=== PATIENT | male | born 1975 | race Hispanic/Latino ===

== ENCOUNTER 2018-11-18 17:04 | Emergency (ER) | payer OTHER ==
[2018-11-18] MEDS ORDERED: NA CHLORIDE 0.9% 1,000 ML ONE ×2 (17:40→19:18)
[2018-11-18 17:56] LABS: Absolute Lymphocytes (CBC) 2.2 K/uL (0.7-4.9); Basophils % 0.6 % (0-1.3); Lymphocytes % 22.5 % (15.3-44.8); MPV 8.6 fL (7.6-11.3); RBC Red Blood Cell Count 5.12 M/uL (4.33-5.43)
--- NOTE | 2018-11-18 18:06 | RAD REPORT ---
EXAM DESCRIPTION: CT - Head Brain Wo Cont - 11/18/2018 5:59 pm CLINICAL HISTORY: blurry vision;Dizziness Headache, drowsiness COMPARISON: <Comparisons> TECHNIQUE: All CT scans are performed using dose optimization technique as appropriate and may inclu de automated exposure control or mA/KV adjustment according to patient size. FINDINGS: No intracranial hemorrhage, hydrocephalus or extra-axial fluid collection.No areas of brai n edema or evidence of midline shift. The paranasal sinuses and mastoids are clear. The calvarium is intact. IMPRESSION: No acute intracranial abnormality.
[2018-11-18 18:27] LABS: ALT/SGPT 55 U/L (12-78); AST/SGOT 22 U/L (15-37); Albumin 4.2 g/dL (3.4-5.0); Alkaline Phosphatase 70 U/L (45-117); BUN Blood Urea Nitrogen 15 mg/dL (7-18); Bicarbonate 25 mmol/L (21-32); Bilirubin Direct 0.1 mg/dL (0-0.2); Bilirubin Total 0.7 mg/dL (0.2-1.0); Glucose Level 101 mg/dL (74-106); Magnesium 2.2 mg/dL (1.8-2.4); NT PRO-BNP 9 pg/mL (<125); Potassium 3.9 mmol/L (3.5-5.1); Sodium Level 142 mmol/L (136-145); Troponin (Emerg Dept Use Only) < 0.02 ng/mL (0.0-0.045)
[2018-11-18] MEDS ORDERED: ASPIRIN 81 MG CHEWABLE TABLET ONE (19:16)
[2018-11-18] MEDS ORDERED: NITROGLYCERIN 0.4 MG/TAB SL ONE (19:17)
--- NOTE | 2018-11-18 22:14 | ER ---
Nurse's Notes [facility] Name: Christopher Shearer Age: 43 yrs Sex: Male : 1975 Arrival Date: 11/18/2018 Time: 17:06 Bed 23 Private MD: None, None Diagnosis: Chest pain, unspecified Presentation: 11/18 17:12 Presenting complaint: Patient states: i started having discomfort in my chest just a tw2 little bit ago when i got off work but earlier about 230 today my vision started getting blurry and i was just sitting there. Transition of care: patient was not received from another setting of care. Onset of symptoms was November 18, 2018. Risk Assessment: Do you want to hurt yourself or someone else? Patient reports no desire to harm self or others. Initial Sepsis Screen: Does the patient meet any 2 criteria? No. Patient's initial sepsis screen is negative. Does the patient have a suspected source of infection? No. Patient's initial sepsis screen is negative. Care prior to arrival: None. 17:12 Method Of Arrival: Ambulatory tw2 17:12 Acuity: PAVAN 3 tw2 Triage Assessment: 17:21 General: Appears in no apparent distress. Behavior is calm, cooperative, appropriate tw2 for age. Pain: Complains of pain in chest. Cardiovascular: Reports chest pain. 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 - Social history:: Smoking status: . - Ebola Screening: : Patient denies travel to an Ebola-affected area in the 21 days before illness onset. Screenin:01 Abuse screen: Denies threats or abuse. Denies injuries from another. Nutritional iw screening: No deficits noted. Tuberculosis screening: No symptoms or risk factors identified. Fall Risk IV access (20 points). Assessment: 17:40 General: Appears in no apparent distress. comfortable, Behavior is calm, cooperative. iw Pain: Complains of pain in chest Pain does not radiate. Pain currently is 0 out of 10 on a pain scale. Pain began Is episodic. Neuro: Level of Consciousness is awake, alert, obeys commands, Oriented to person, place, time, situation, Moves all extremities. Reports blurred vision dizziness. Cardiovascular: Patient's skin is warm and dry. Respiratory: Respiratory effort is even, unlabored, Respiratory pattern is regular. GI: No signs and/or symptoms were reported involving the gastrointestinal system. Derm: Skin is intact, is healthy with good turgor. Musculoskeletal: Range of motion: intact in all extremities. 18:48 Reassessment: Patient appears in no apparent distress at this time. Patient and/or iw family updated on plan of care and expected duration. Pain level reassessed. Patient is alert, oriented x 3, equal unlabored respirations, skin warm/dry/pink. Patient denies pain at this time. 20:37 Reassessment: Patient appears in no apparent distress at this time. Patient and/or mg2 family updated on plan of care and expected duration. Pain level reassessed. Patient is alert, oriented x 3, equal unlabored respirations, skin warm/dry/pink. Vital Signs: 17:13 BP 138 / 88; Pulse 83; Resp 17; Temp 98.2(TE); Pulse Ox 98% on R/A; Weight 91.63 kg tw2 (R); Height 5 ft. 11 in. (180.34 cm) (R); Pain 3/10; 17:52 BP 116 / 85 Supine; Pulse 66; iw 17:53 BP 130 / 89 Sitting; Pulse 69; iw 17:56 BP 125 / 94 Standing; Pulse 69; iw 19:29 BP 130 / 96; Pulse 74; Resp 18; Pulse Ox 97% on R/A; mg2 20:38 BP 114 / 82; Pulse 70; Resp 18; Pulse Ox 98% on R/A; mg2 21:43 BP 124 / 82; Pulse 64; Resp 18; Pulse Ox 98% on R/A; mg2 22:20 BP 124 / 81; Pulse 66; Resp 16; Pulse Ox 99% on R/A; rv 17:13 Body Mass Index 28.17 (91.63 kg, 180.34 cm) tw2 ED Course: 17:06 Patient arrived in ED. mr 17:07 None, None is Private Physician. mr 17:12 Arm band placed on. EKG completed in triage. Results shown to . tw2 17:13 Cathy Garcia, RN is Primary Nurse. iw 17:20 Wisam Strong PA is PHCP. cp 17:20 Callum Luis MD is Attending Physician. cp 17:20 Triage completed. tw2 17:26 EKG done, by aviation survival technician. reviewed by Callum Luis MD. sm3 17:45 Initial lab(s) drawn, by il, sent to lab. Inserted saline lock: 20 gauge in right iw antecubital area, using aseptic technique. Blood collected. 17:[address] [place] 18:00 CT Head Brain wo Cont In Process Unspecified. EDMS 19:28 Patient has correct armband on for positive identification. equipment monitor phototypesetting on. Pulse mg2 ox on. NIBP on. 19:29 No provider procedures requiring assistance completed. mg2 19:29 Patient maintains SpO2 saturation greater than 95% on room air. mg2 21:37 Troponin I Sent. mg2 22:13 Adrián Muir MD is Referral Physician. cp 22:21 IV discontinued, intact, bleeding controlled, No redness/swelling at site. Pressure rv dressing applied. Administered Medications: 17:50 Drug: NS 0.9% 1000 ml Route: IV; Rate: 1 bolus; Site: right antecubital; iw 19:23 Drug: NS 0.9% 1000 ml Route: IV; Rate: 1000 ml; Site: right antecubital; mg2 21:11 Follow up: Response: No adverse reaction; IV Status: Completed infusion; IV Intake: mg2 1000ml 19:23 Drug: Nitroglycerin 0.4 mg Route: Sublingual; mg2 20:38 Follow up: Response: No adverse reaction mg2 19:23 Drug: Aspirin Chewable Tablet 324 mg Route: PO; mg2 20:38 Follow up: Response: No adverse reaction mg2 Intake: 21:11 IV: 1000ml; Total: 1000ml. mg2 Outcome: 22:14 Discharge ordered by MD. cp 22:21 Discharged to home ambulatory, with family. rv 22:21 Condition: good 22:21 Discharge instructions given to patient, Instructed on discharge instructions, follow up and referral plans. Demonstrated understanding of instructions, follow-up care. 22:22 Patient left the ED. rv Signatures: [facility] Ananth Imelda mr Cathy Garcia, DAVID RN Wisam Strong PA PA cp Leila Yates RN RN tw2 Moreno Hedrick Michele, RN RN mg2 Mary Lou Yadav sm3 Ministerio Cruz, DAVID RN rv
--- NOTE | 2018-11-18 22:15 | EDPHYS ---
Physician Documentation [facility] Name: Christopher Shearer Age: 43 yrs Sex: Male : 1975 Arrival Date: 11/18/2018 Time: 17:06 Bed 23 Private MD: None, None ED Physician Callum Luis HPI: 11/18 17:40 This 43 yrs old Male presents to ER via Ambulatory with complaints of Chest cp Pain, Vision Problem. 17:40 The patient or guardian reports chest pain that is located primarily in the anterior cp chest wall. Onset: just prior to arrival. The chest pain is described as a pressure. Duration: The patient or guardian reports a single episode, that is still ongoing, but improving. 17:40 The patient presents with lightheadedness, vision went dark. cp 17:40 Onset: The symptoms/episode began/occurred today, at 14:30, while at work and sitting cp outside on scaffold. Associated signs and symptoms: Pertinent negatives: abdominal pain, diaphoresis, focal weakness, numbness, syncope, vomiting. Severity of symptoms: in the emergency department the symptoms have resolved report single episode that lasted for seconds. Patient's baseline: Neuro: alert and fully oriented, Motor: no deficits, Ambulation: walks without assistance, Speech: normal. 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 - Social history:: Smoking status: . - Ebola Screening: : Patient denies travel to an Ebola-affected area in the 21 days before illness onset. ROS: 17:45 Constitutional: Negative for chills, fever, poor PO intake. cp 17:45 Eyes: Positive for blurry vision, Negative for pain, redness, vision loss. cp 17:45 ENT: Negative for drainage from ear(s), ear pain, sore throat, difficulty swallowing, difficulty handling secretions. 17:45 Cardiovascular: Positive for chest pain, Negative for edema, palpitations. 17:45 Respiratory: Negative for cough, shortness of breath, wheezing. 17:45 Abdomen/GI: Negative for abdominal pain, nausea, vomiting, and diarrhea. 17:45 Neuro: Positive for dizziness, Negative for altered mental status, syncope, weakness. 17:45 All other systems are negative. Exam: 17:20 ECG was reviewed by the Attending Physician. cp 17:50 Constitutional: The patient appears in no acute distress, alert, awake, comfortable, cp non-diaphoretic, non-toxic, well developed, well nourished. 17:50 Head/Face: Normocephalic, atraumatic. Eyes: Pupils equal round and reactive to light, cp extra-ocular motions intact. Lids and lashes normal. Conjunctiva and sclera are non-icteric and not injected. Cornea within normal limits. Periorbital areas with no swelling, redness, or edema. ENT: Nares patent. No nasal discharge, no septal abnormalities noted. Tympanic membranes are normal and external auditory canals are clear. Oropharynx with no redness, swelling, or masses, exudates, or evidence of obstruction, uvula midline. Mucous membranes moist. Chest/axilla: Normal chest wall appearance and motion. Nontender with no deformity. No lesions are appreciated. 17:50 Cardiovascular: Rate: normal, Rhythm: regular, Edema: is not appreciated, JVD: is not appreciated. 17:50 Respiratory: the patient does not display signs of respiratory distress, Respirations: normal, no use of accessory muscles, no retractions, no splinting, no tachypnea, labored breathing, is not present, Breath sounds: are clear throughout, no decreased breath sounds, no stridor, no wheezing. 17:50 Abdomen/GI: Inspection: abdomen appears normal, Bowel sounds: active, all quadrants, Palpation: abdomen is soft and non-tender, in all quadrants. 17:50 Back: pain, is absent, ROM is normal. 17:50 Skin: no rash present. 17:50 Neuro: Orientation: to person, place \T\ time. Mentation: is normal, Cerebellar function: is grossly normal, Motor: moves all fours, strength is normal, Sensation: is normal. 21:35 ECG was reviewed by the Attending Physician. cp Vital Signs: 17:13 BP 138 / 88; Pulse 83; Resp 17; Temp 98.2(TE); Pulse Ox 98% on R/A; Weight 91.63 kg tw2 (R); Height 5 ft. 11 in. (180.34 cm) (R); Pain 3/10; 17:52 BP 116 / 85 Supine; Pulse 66; iw 17:53 BP 130 / 89 Sitting; Pulse 69; iw 17:56 BP 125 / 94 Standing; Pulse 69; iw 19:29 BP 130 / 96; Pulse 74; Resp 18; Pulse Ox 97% on R/A; mg2 20:38 BP 114 / 82; Pulse 70; Resp 18; Pulse Ox 98% on R/A; mg2 21:43 BP 124 / 82; Pulse 64; Resp 18; Pulse Ox 98% on R/A; mg2 22:20 BP 124 / 81; Pulse 66; Resp 16; Pulse Ox 99% on R/A; rv 17:13 Body Mass Index 28.17 (91.63 kg, 180.34 cm) tw2 MDM: 17:20 Patient medically screened. cp 22:13 The patient was given aspirin in the Emergency Department. cp 22:13 Data reviewed: vital signs, nurses notes, lab test result(s), EKG, radiologic studies, cp CT scan, plain films, and as a result, I will discharge patient. Test interpretation: by ED physician or midlevel provider: ECG. Counseling: I had a detailed discussion with the patient and/or guardian regarding: the historical points, exam findings, and any diagnostic results supporting the discharge/admit diagnosis, lab results, radiology results, the need for outpatient follow up, a pictures editor, to return to the emergency department if symptoms worsen or persist or if there are any questions or concerns that arise at home. Special discussion: Based on the patient's history, exam, and Dx evaluation, there is no indication for emergent intervention or inpatient Tx. It is understood by the patient/guardian that if the Sx's persist or worsen they need to return immediately for re-evaluation. ED course: VSS. Initial and repeat EKGs and troponin negative. Will discharge to home for continued monitoring. 11/18 17:35 Order name: Basic Metabolic Panel; Complete Time: 18:28 cp 11/18 18:28 Interpretation: Normal except: CL 109; CRE 1.32; GFR 60. cp 11/18 17:35 Order name: CBC with Diff; Complete Time: 18:28 cp 11/18 17:35 Order name: LFT's; Complete Time: 18:41 cp /04 17:35 Order name: Magnesium; Complete Time: 18:41 cp /04 17:35 Order name: NT PRO-BNP; Complete Time: 18:41 cp /04 17:35 Order name: PT-INR; Complete Time: 18:28 cp /04 17:35 Order name: CT Head Brain wo Cont; Complete Time: 18:28 cp /04 18:28 Interpretation: Report reviewed. cp / 17:35 Order name: Troponin (emerg Dept Use Only); Complete Time: 18:41 cp /04 18:40 Interpretation: Reviewed. cp / 17:35 Order name: EKG; Complete Time: 17:37 cp / 21:22 Order name: Troponin I cp / 17:35 Order name: Orthostatics; Complete Time: 17:58 cp /04 17:35 Order name: Cardiac monitoring; Complete Time: 17:58 cp 11/18 17:35 Order name: EKG - Nurse/Tech; Complete Time: 17:58 cp 11/18 17:35 Order name: IV Saline Lock; Complete Time: 17:58 cp 11/18 17:35 Order name: Labs collected and sent; Complete Time: 17:58 cp 11/18 17:35 Order name: O2 Per Protocol; Complete Time: 17:58 cp 11/18 17:35 Order name: O2 Sat Monitoring; Complete Time: 17:58 cp 04 21:22 Order name: EKG; Complete Time: 21:22 cp 11/18 21:22 Order name: EKG - Nurse/Tech; Complete Time: 21:27 cp EC:20 Rate is 79 beats/min. Rhythm is regular. OH interval is normal. QRS interval is normal. cp QT interval is normal. T waves are Inverted in lead III. Interpreted by me. Reviewed by me. 21:35 Rate is 60 beats/min. Rhythm is regular. OH interval is normal. QRS interval is normal. cp QT interval is normal. T waves are Inverted in lead III. Interpreted by me. Reviewed by me. Administered Medications: 17:50 Drug: NS 0.9% 1000 ml Route: IV; Rate: 1 bolus; Site: right antecubital; iw 19:23 Drug: NS 0.9% 1000 ml Route: IV; Rate: 1000 ml; Site: right antecubital; mg2 21:11 Follow up: Response: No adverse reaction; IV Status: Completed infusion; IV Intake: mg2 1000ml 19:23 Drug: Nitroglycerin 0.4 mg Route: Sublingual; mg2 20:38 Follow up: Response: No adverse reaction mg2 19:23 Drug: Aspirin Chewable Tablet 324 mg Route: PO; mg2 20:38 Follow up: Response: No adverse reaction mg2 Disposition: 22:30 Chart complete. cp 11/19 07:00 Co-signature as Attending Physician, Callum Luis MD. rn Disposition: 11/18/18 22:14 Discharged to Home. Impression: Chest pain, unspecified. - Condition is Stable. - Discharge Instructions: Nonspecific Chest Pain, Exercise Stress Electrocardiogram, Aspirin and Your Heart. - Medication Reconciliation Form, Thank You Letter, Antibiotic Education, Prescription Opioid Use form. - Follow up: Adrián Muir MD; When: 1 - 2 days; Reason: chest pain. - Problem is new. - Symptoms have improved. Signatures: Dispatcher [employer] Cathy Sanon, RN RN Callum Luis MD MD rn Wisam Strong PA PA cp Leila Yates RN RN tw2 Williams Lowe RN RN mg2 Ministerio Cruz, RN RN rv Corrections: (The following items were deleted from the chart) 11/18 22:22 22:14 11/18/2018 22:14 Discharged to Home. Impression: Chest pain, unspecified. rv Condition is Stable. Forms are Medication Reconciliation Form, Thank You Letter, Antibiotic Education, Prescription Opioid Use. Follow up: Adrián Muir; When: 1 - 2 days; Reason: chest pain. Problem is new. Symptoms have improved. cp
--- NOTE | 2018-11-19 07:33 | EKG ---
Test Date: 2018-11-18 Test Time: 21:29:27 Speeder Machine Operator: RV MEASUREMENT RESULTS: Intervals: Rate: 60 MA: 152 QRSD: 92 QT: 390 QTc: 390 [place]: P: 10 MA: 152 QRS: 48 T: 5 INTERPRETIVE STATEMENTS: Normal sinus rhythm Normal ECG Compared to ECG 11/18/2018 17:13:35 No significant changes Electronically Signed On 11-19-18 07:32:45 CDT by Adrián Muir
--- NOTE | 2018-11-19 07:34 | EKG ---
Test Date: 2018-11-18 Test Time: 17:13:35 Air Export Logistics Manager: MASON MEASUREMENT RESULTS: Intervals: Rate: 79 RI: 134 QRSD: 84 QT: 344 QTc: 394 [place]: P: 54 RI: 134 QRS: 53 T: 15 INTERPRETIVE STATEMENTS: Normal sinus rhythm Normal ECG Compared to ECG 02/25/2016 00:09:09 No significant changes Electronically Signed On 11-19-18 07:33:00 CDT by Adrián Muir
== END 2018-11-18 22:22 | disposition home or self-care (01) ==
LOC: ER 17:04
DX: R07.9 Chest pain, unspecified (principal); I10 Essential (primary) hypertension; F41.9 Anxiety disorder, unspecified
CPT/HCPCS: 96361; 93005 ×2; 85025; 80048; 36415; 83735; 85610; 80076; 84484 ×2; 83880; 70450; 96360; 99285; J7030 ×2

== ENCOUNTER 2020-05-28 22:46 | Emergency (ER) | payer OTHER, SELFPAY ==
[2020-05-28 23:24] LABS: Absolute Lymphocytes (CBC) 1.6 K/uL (0.7-4.9); Basophils % 0.6 % (0-1.3); MPV 8.7 fL (7.6-11.3); RBC Red Blood Cell Count 5.75 M/uL (4.33-5.43)
[2020-05-28 23:28] LABS: Protime INR 0.92
[2020-05-28 23:36] LABS: ALT/SGPT 30 U/L (12-78); AST/SGOT 17 U/L (15-37); Albumin 4.1 g/dL (3.4-5.0); Alkaline Phosphatase 104 U/L (45-117); BUN Blood Urea Nitrogen 14 mg/dL (7-18); Bicarbonate 28 mmol/L (21-32); Bilirubin Direct < 0.1 mg/dL (0-0.2); Bilirubin Total 0.4 mg/dL (0.2-1.0); Glucose Level 90 mg/dL (74-106); Magnesium 2.6 mg/dL (1.8-2.4); NT PRO-BNP 23 pg/mL (<125); Potassium 3.6 mmol/L (3.5-5.1); Protein, Total 8.1 g/dL (6.4-8.2); Sodium Level 142 mmol/L (136-145); Troponin (Emerg Dept Use Only) < 0.02 ng/mL (0.0-0.045)
--- NOTE | 2020-05-29 00:58 | ER ---
Nurse's Notes [facility] Name: Christopher Shearer Age: 44 yrs Sex: Male : 1975 Arrival Date: 05/28/2020 Time: 22:50 Bed 8 Private MD: Diagnosis: Chest wall pain Presentation: 05/28 23:00 Chief complaint: Patient states: Pt reports he was at work pulling on a pipe he felt ea the right side of his chest pulling and he felt dizzy, reports right side pain that radiates to the back. Coronavirus screen: At this time, the client does not indicate any symptoms associated with coronavirus-19. Ebola Screen: No symptoms or risks identified at this time. Initial Sepsis Screen: Does the patient meet any 2 criteria? No. Patient's initial sepsis screen is negative. Does the patient have a suspected source of infection? No. Patient's initial sepsis screen is negative. Risk Assessment: Do you want to hurt yourself or someone else? Patient reports no desire to harm self or others. Onset of symptoms was May 28, 2020. 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 - Social history:: Smoking status: unknown. Screenin:03 Abuse screen: Denies threats or abuse. Nutritional screening: No deficits noted. ea Tuberculosis screening: No symptoms or risk factors identified. Fall Risk None identified. Assessment: 23:03 General: Appears comfortable, Behavior is calm, cooperative. Pain: Complains of pain in rv chest Pain does not radiate. Pain began suddenly. Neuro: Level of Consciousness is awake, alert, obeys commands, Oriented to person, place, time, situation. Cardiovascular: Rhythm is sinus rhythm. Respiratory: Airway is patent Respiratory effort is even, unlabored. Derm: Skin is intact. Vital Signs: 23:00 BP 145 / 94; Pulse 76; Resp 18; Temp 97.8; Pulse Ox 97% on R/A; Weight 83.91 kg; Height ea 5 ft. 11 in. (180.34 cm); Pain 8/10; 05/29 00:12 BP 123 / 82; Pulse 76; Resp 19; Pulse Ox 94% on R/A; rv 05/28 23:00 Body Mass Index 25.80 (83.91 kg, 180.34 cm) ea ED Course: 05/28 22:50 Patient arrived in ED. am4 22:52 Mauricio Houston MD is Attending Physician. tw4 22:55 Ministerio Cruz, RN is Primary Nurse. rv 23:03 Triage completed. ea 23:03 No provider procedures requiring assistance completed. Patient maintains SpO2 ea saturation greater than 95% on room air. 23:03 Patient has correct armband on for positive identification. Bed in low position. Call ea light in reach. Side rails up X 1. phototypesetting equipment monitor on. Pulse ox on. NIBP on. 23:03 Arm band placed on right wrist. Patient placed in an exam room, on a stretcher, on ea pulse oximetry. 23:04 Initial lab(s) drawn, by me, sent to lab. EKG done, by ED staff, reviewed by Mauricio Houston MD. Inserted saline lock: 20 gauge in right forearm, using aseptic technique. Blood collected. 23:57 XRAY Chest (1 view) In Process Unspecified. EDIA 05/29 01:03 IV discontinued, intact, bleeding controlled, No redness/swelling at site. Pressure rv dressing applied. Administered Medications: 00:11 Drug: TORadol 30 mg Route: IVP; Site: right forearm; rv 01:03 Follow up: Response: No adverse reaction; Pain is decreased rv Outcome: 00:57 Discharge ordered by . tw4 01:03 Discharged to home ambulatory. rv 01:03 Condition: good 01:03 Discharge instructions given to patient, Instructed on discharge instructions, follow up and referral plans. medication usage, Demonstrated understanding of instructions, follow-up care, medications, Prescriptions given X 3. 01:03 Patient left the ED. rv Signatures: Dispatcher [employer] EDIA Thania Dalal RN RN ea Wadley, Terrence, MD MD tw4 Ministerio Cruz RN RN rv Martinez, Ashley am4
--- NOTE | 2020-05-29 00:58 | EDPHYS ---
Physician Documentation [facility] Name: Christopher Shearer Age: 44 yrs Sex: Male : 1975 Arrival Date: 05/28/2020 Time: 22:50 Bed 8 Private MD: ED Physician Mauricio Houston HPI: 05/28 23:49 This 44 yrs old Male presents to ER via Ambulatory with complaints of Chest tw4 Pain, Back Pain. 23:49 The patient or guardian reports chest pain that is located primarily in the anterior tw4 chest wall. The patient or guardian reports chest pain that is located primarily in the anterior chest wall, right. Onset: today. The pain does not radiate. Associated signs and symptoms: The patient has no apparent associated signs or symptoms. The chest pain is described as a pressure. Duration: The patient or guardian reports a single episode. Modifying factors: The symptoms are alleviated by remaining still, rest, the symptoms are aggravated by breathing, cough, deep breath, movement, palpation of area. The patient has not experienced similar symptoms in the past. 23:49 Pt states that he was moving a heavy pipe two days ago and had a sharp pain in his tw4 chest. 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 - Social history:: Smoking status: unknown. ROS: 23:49 Constitutional: Negative for fever, chills, and weight loss, Eyes: Negative for injury, tw4 pain, redness, and discharge. 23:49 Respiratory: Negative for shortness of breath, cough, wheezing, and pleuritic chest pain, Abdomen/GI: Negative for abdominal pain, nausea, vomiting, diarrhea, and constipation, Back: Negative for injury and pain, MS/Extremity: Negative for injury and deformity, Skin: Negative for injury, rash, and discoloration, Neuro: Negative for headache, weakness, numbness, tingling, and seizure. 23:49 Cardiovascular: Positive for chest pain, Negative for edema, orthopnea, palpitations, paroxysmal nocturnal dyspnea. Exam: 23:49 Constitutional: This is a well developed, well nourished patient who is awake, alert, tw4 and in no acute distress. Head/Face: Normocephalic, atraumatic. 23:49 Cardiovascular: Regular rate and rhythm with a normal S1 and S2. No gallops, murmurs, or rubs. Normal PMI, no JVD. No pulse deficits. Respiratory: Lungs have equal breath sounds bilaterally, clear to auscultation and percussion. No rales, rhonchi or wheezes noted. No increased work of breathing, no retractions or nasal flaring. Abdomen/GI: Soft, non-tender, with normal bowel sounds. No distension or tympany. No guarding or rebound. No evidence of tenderness throughout. Back: No spinal tenderness. No costovertebral tenderness. Full range of motion. MS/ Extremity: Pulses equal, no cyanosis. Neurovascular intact. Full, normal range of motion. Neuro: Awake and alert, GCS 15, oriented to person, place, time, and situation. Cranial nerves II-XII grossly intact. Motor strength 5/5 in all extremities. Sensory grossly intact. Cerebellar exam normal. Normal gait. 23:49 Chest/axilla: Inspection: normal, Palpation: tenderness, that totally reproduces the patient's complaints. Vital Signs: 23:00 BP 145 / 94; Pulse 76; Resp 18; Temp 97.8; Pulse Ox 97% on R/A; Weight 83.91 kg; Height ea 5 ft. 11 in. (180.34 cm); Pain 8/10; 05/29 00:12 BP 123 / 82; Pulse 76; Resp 19; Pulse Ox 94% on R/A; rv 05/28 23:00 Body Mass Index 25.80 (83.91 kg, 180.34 cm) ea MDM: 05/28 23:49 HEART Score: History: Slightly Suspicious (0), ECG: Normal (0), Age: < or = 45 years tw4 (0), Risk Factors: No Risk Factors Known (0), Troponin: < or = 1 x Normal Limit (0), Total Score = 0. Data reviewed: vital signs, nurses notes. Data interpreted: Pulse oximetry: Interpretation: normal. Counseling: I had a detailed discussion with the patient and/or guardian regarding: the historical points, exam findings, and any diagnostic results supporting the discharge/admit diagnosis. Special discussion: I discussed with the patient/guardian in detail that at this point there is no indication for admission to the hospital. It is understood, however, that if the symptoms persist or worsen the patient needs to return immediately for re-evaluation. 05/29 00:57 Patient medically screened. 05/28 22:53 Order name: Basic Metabolic Panel; Complete Time: 23:40 05/28 23:40 Interpretation: Normal except: CL 109; GFR 75. 05/28 22:53 Order name: CBC with Diff; Complete Time: 23:40 05/28 23:40 Interpretation: Normal except: RBC 5.75; HCT 50.0; MN% 13.5; LYM% 15.0. 05/28 22:53 Order name: LFT's; Complete Time: 23:40 05/28 23:40 Interpretation: Normal except: A/G 1.0; GLOB 4.0. 05/28 22:53 Order name: Magnesium; Complete Time: 23:40 05/28 23:40 Interpretation: Normal except: MG 2.6. 05/28 22:53 Order name: NT PRO-BNP; Complete Time: 23:40 05/28 23:40 Interpretation: Within normal limits: NT PRO-BNP 23. 05/28 22:53 Order name: PT-INR; Complete Time: 23:40 05/28 23:40 Interpretation: Within normal limits: PT 10.6. 05/28 22:53 Order name: Troponin (emerg Dept Use Only); Complete Time: 23:40 05/28 23:40 Interpretation: Within normal limits: TROPED < 0.02. 05/28 22:53 Order name: XRAY Chest (1 view) 05/28 22:53 Order name: EKG; Complete Time: 22:54 05/28 22:53 Order name: Cardiac monitoring; Complete Time: 23:04 05/28 22:53 Order name: EKG - Nurse/Tech; Complete Time: 23:04 05/28 22:53 Order name: IV Saline Lock; Complete Time: 23:04 05/28 22:53 Order name: Labs collected and sent; Complete Time: 23:04 05/28 22:53 Order name: O2 Per Protocol; Complete Time: : tw4 05/28 22:53 Order name: O2 Sat Monitoring; Complete Time: : tw4 EC:30 Rate is 83 beats/min. Rhythm is regular. QRS [place] is Normal. ID interval is normal. QRS tw4 interval is normal. QT interval is normal. No Q waves. T waves are Normal. No ST changes noted. Clinical impression: Normal ECG. Interpreted by me. Reviewed by me. Administered Medications: 00:11 Drug: TORadol 30 mg Route: IVP; Site: right forearm; rv 01:03 Follow up: Response: No adverse reaction; Pain is decreased rv Disposition: 05/29/20 00:57 Discharged to Home. Impression: Chest wall pain. - Condition is Stable. - Discharge Instructions: Chest Wall Pain, Costochondritis. - Prescriptions for Lidoderm 5 % Topical adhesive patch,medicated - apply 1 patch by TRANSDERMAL route once daily; 1 box. Voltaren 1 % Topical gel - apply 2 gram by TOPICAL route 4 times per day; 1 Container. Ibuprofen 800 mg Oral Tablet - take 1 tablet by ORAL route every 8 hours As needed take with food; 30 tablet. - Medication Reconciliation Form, Thank You Letter, Antibiotic Education, Prescription Opioid Use form. - Follow up: Private Physician; When: Upon discharge from the Emergency Department; Reason: Recheck today's complaints, Continuance of care, Re-evaluation by your physician. - Problem is new. - Symptoms have improved. Signatures: Dispatcher [employer] EDMS Thania Dalal RN RN ea Wadley, Terrence, MD MD tw4 Ministerio Cruz RN RN rv Corrections: (The following items were deleted from the chart) 01:03 00:57 05/29/2020 00:57 Discharged to Home. Impression: Chest wall pain. Condition is rv Stable. Forms are Medication Reconciliation Form, Thank You Letter, Antibiotic Education, Prescription Opioid Use. Follow up: Private Physician; When: Upon discharge from the Emergency Department; Reason: Recheck today's complaints, Continuance of care, Re-evaluation by your physician. Problem is new. Symptoms have improved. tw4
--- NOTE | 2020-05-29 09:01 | RAD REPORT ---
EXAM DESCRIPTION: RAD - Chest Single View - 05/28/2020 11:57 pm CLINICAL HISTORY: CHEST PAIN COMPARISON: February 2016 TECHNIQUE: AP portable chest image was obtained 05/28/2020 11:57 pm . FINDINGS: No focal lung parenchymal process. Interstitial pattern matches comparison. Heart and vasc ulature are normal. No measurable pleural effusion and no pneumothorax. No acute bony abnormality see n. No acute aortic findings suspected. IMPRESSION: No acute cardiopulmonary process. No significant change from comparison.
[2020-05-29 19:01] VITALS: TEMP 97.8
[2020-05-29 19:02] VITALS: BP 123/82; O2SAT 94
== END 2020-05-29 01:03 | disposition home or self-care (01) ==
LOC: ER 22:46
DX: R07.89 Other chest pain (principal); I10 Essential (primary) hypertension; F41.9 Anxiety disorder, unspecified
CPT/HCPCS: 36415; 71045; 80048; 80076; 83735; 83880; 84484; 85025; 85610; 93005; 96374; 99285

== ENCOUNTER 2020-10-08 13:35 | Emergency (ER) | payer SELFPAY ==
[2020-10-08 14:45] LABS: Basophils % 0.8 % (0-1.3); Hematocrit 46.9 % (39.6-49.0); Lymphocytes % 19.8 % (15.3-44.8); MPV 7.8 fL (7.6-11.3); Protime INR 0.95; RBC Red Blood Cell Count 5.48 M/uL (4.33-5.43)
[2020-10-08 14:59] LABS: ALT/SGPT 42 U/L (12-78); AST/SGOT 18 U/L (15-37); Albumin 4.2 g/dL (3.4-5.0); Alkaline Phosphatase 105 U/L (45-117); BUN Blood Urea Nitrogen 12 mg/dL (7-18); Bicarbonate 25 mmol/L (21-32); Bilirubin Direct 0.1 mg/dL (0-0.2); Bilirubin Total 0.7 mg/dL (0.2-1.0); Glucose Level 102 mg/dL (74-106); NT PRO-BNP 16 pg/mL (<125); Potassium 3.8 mmol/L (3.5-5.1); Protein, Total 8.1 g/dL (6.4-8.2); Sodium Level 138 mmol/L (136-145); Troponin (Emerg Dept Use Only) < 0.02 ng/mL (0.0-0.045)
--- NOTE | 2020-10-08 15:12 | RAD REPORT ---
EXAM DESCRIPTION: RAD - Chest Single View - 10/08/2020 2:35 pm CLINICAL HISTORY: CHEST PAIN COMPARISON: Chest Single View dated 05/28/2020; Chest Pa And Lat (2 Views) dated 02/25/2016; Chest Si ngle View dated 07/06/2015; Chest Single View dated 07/03/2015 FINDINGS: No evidence of edema or pneumonia. The heart size is within normal limits.No acute osseous abnormality. No significant pleural effusions or pneumothorax. IMPRESSION: No acute cardiopulmonary disease.
[2020-10-08] MEDS ORDERED: KETOROLAC 30 MG/ML INJ ONE (16:55)
--- NOTE | 2020-10-10 16:46 | ER ---
Nurse's Notes [facility] Name: Christopher Shearer Age: 45 yrs Sex: Male : 1975 Arrival Date: 10/08/2020 Time: 13:37 Bed 7 Private MD: Diagnosis: Chest pain, unspecified Presentation: 10/08 14:05 Chief complaint: Patient states: Intermittent chest discomfort that began a few days ss ago. PT reports today he feel fatigued, hands are clammy and now has a headache. Pt states, "I've been under a lot of stress lately.". Coronavirus screen: Client denies travel out of the [place] in the last 14 days. Ebola Screen: Patient denies exposure to infectious person. Patient denies travel to an Ebola-affected area in the 21 days before illness onset. Initial Sepsis Screen: Does the patient meet any 2 criteria? No. Patient's initial sepsis screen is negative. Does the patient have a suspected source of infection? No. Patient's initial sepsis screen is negative. Risk Assessment: Do you want to hurt yourself or someone else? Patient reports no desire to harm self or others. Onset of symptoms was November 05, 2020. 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 - Social history:: Smoking status: Patient denies any tobacco usage or history of. Screenin:59 Abuse screen: Denies threats or abuse. Denies injuries from another. Nutritional jl7 screening: No deficits noted. Tuberculosis screening: No symptoms or risk factors identified. Fall Risk IV access (20 points). Total Ross Fall Scale indicates No Risk (0-24 pts). Assessment: 15:03 General: Appears in no apparent distress. Behavior is calm, cooperative, appropriate kg for age, anxious, quiet. Pain: Denies pain. Pain: Denies pain. Neuro: No deficits noted. Cardiovascular: No deficits noted. Reports shortness of breath, numbness to hands Heart tones S1 S2. Respiratory: Reports cough that is productive, Difficulty getting sputum up Airway is patent Trachea midline Respiratory effort is even, unlabored, relaxed, Respiratory pattern is regular, Sputum is thick, white Breath sounds are clear bilaterally. GI: No deficits noted. : No deficits noted. 15:05 Pain: Pain began 4 hours ago. kg 16:00 Reassessment: Patient appears in no apparent distress at this time. No changes from jl7 previously documented assessment. Patient and/or family updated on plan of care and expected duration. Pain level reassessed. Patient is alert, oriented x 3, equal unlabored respirations, skin warm/dry/pink. 17:00 Reassessment: Patient appears in no apparent distress at this time. Patient and/or jl7 family updated on plan of care and expected duration. Pain level reassessed. Patient is alert, oriented x 3, equal unlabored respirations, skin warm/dry/pink. Patient states symptoms have improved. Vital Signs: 14:05 BP 141 / 99; Pulse 76; Resp 16; Temp 97.4(TE); Pulse Ox 99% on R/A; Weight 83.91 kg; ss Height 5 ft. 11 in. (180.34 cm); Pain 0/10; 14:59 BP 125 / 87; Pulse 72; Resp 15; Pulse Ox 99% ; jl7 16:00 BP 122 / 90; Pulse 73; Resp 15; Pulse Ox 97% ; jl7 17:00 BP 131 / 92; Pulse 73; Resp 15; Pulse Ox 99% ; jl7 14:05 Body Mass Index 25.80 (83.91 kg, 180.34 cm) ED Course: 13:37 Patient arrived in ED. ds1 14:07 Triage completed. ss 14:07 Arm band placed on right wrist. ss 14:20 Julissa Kohler FNP-C is PHCP. kb 14:20 Elton Hernández MD is Attending Physician. kb 14:30 Initial lab(s) drawn, by me, sent to lab. Inserted saline lock: 20 gauge in right dh3 forearm, using aseptic technique. Blood collected. 14:34 XRAY Chest (1 view) In Process Unspecified. EDMS 14:59 Patient has correct armband on for positive identification. Placed in gown. Bed in low jl7 position. Call light in reach. Side rails up X 1. surveillance monitor on. Pulse ox on. NIBP on. 15:03 Meredith Au, RN is Primary Nurse. kg 15:05 Patient maintains SpO2 saturation greater than 95% on room air. kg 16:45 EKG done, by ED staff, reviewed by Julissa FARLEY. 3 16:59 Troponin (emerg Dept Use Only) Sent. 3 17:25 No provider procedures requiring assistance completed. IV discontinued, intact, jl7 bleeding controlled, No redness/swelling at site. Pressure dressing applied. Administered Medications: 16:35 Drug: Ketorolac 30 mg Route: IVP; Site: right forearm; jl7 17:00 Follow up: Response: No adverse reaction; Pain is decreased jl7 Outcome: 17:16 Discharge ordered by . kb 17:25 Discharged to home ambulatory. 7 17:25 Condition: stable 17:25 Discharge instructions given to patient, Instructed on discharge instructions, follow up and referral plans. Demonstrated understanding of instructions, follow-up care. 17:26 Patient left the ED. 7 Signatures: Dispatcher [employer] EDMS Julissa Kohler FNP-C FNP-Cassidy Bocanegra ds1 Steffi Pendleton, RN RN Selina Masters RN RN 7 Christie Hernández 3 Meredith Au, RN RN kg
--- NOTE | 2020-10-10 16:47 | EDPHYS ---
Physician Documentation [facility] Name: Christopher Shearer Age: 45 yrs Sex: Male : 1975 Arrival Date: 10/08/2020 Time: 13:37 Bed 7 Private MD: ED Physician Elton Hernández HPI: 10/08 16:02 This 45 yrs old Male presents to ER via Ambulatory with complaints of Chest kb Pain - Stress. 16:02 The patient or guardian reports chest pain that is located primarily in the anterior kb chest wall. Onset: today. Onset: 3 hours precinct captain. The pain does not radiate. Associated signs and symptoms: Pertinent positives: hands tingling and sweatty. The chest pain is described as aching. Duration: The patient or guardian reports a single episode. Modifying factors: The symptoms are alleviated by nothing. the symptoms are aggravated by nothing. Severity of pain: At its worst the pain was moderate in the emergency department the pain is unchanged. The patient has experienced similar episodes in the past, a few times. The patient has not recently seen a physician. Reports he has been very stressed out about things going on with his daughter. Was lying in bed watching TV when he felt some chest discomfort. States is not pain chest discomfort. Had tingling and sweatiness to palms. Developed headache which made him come to the ER to get it checked out.. 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 - Social history:: Smoking status: Patient denies any tobacco usage or history of. ROS: 16:01 Constitutional: Negative for fever, chills, and weight loss. kb 16:01 Cardiovascular: Positive for chest pain, Negative for edema, orthopnea, palpitations, paroxysmal nocturnal dyspnea. 16:01 Neuro: Positive for tingling, of the right hand and left hand. 16:01 All other systems are negative. Exam: 16:01 Constitutional: This is a well developed, well nourished patient who is awake, alert, kb and in no acute distress. Head/Face: Normocephalic, atraumatic. ENT: Moist Mucous membranes Cardiovascular: Regular rate and rhythm with a normal S1 and S2. No gallops, murmurs, or rubs. No pulse deficits. Respiratory: Respirations even and unlabored. No increased work of breathing, no retractions or nasal flaring. Abdomen/GI: Soft, non-tender. No distention Skin: Warm, dry with normal turgor. Normal color. MS/ Extremity: Pulses equal, no cyanosis. Neurovascular intact. Full, normal range of motion. Neuro: Awake and alert, GCS 15, oriented to person, place, time, and situation. Moves all extremities. Normal gait. Psych: Awake, alert, with orientation to person, place and time. Behavior, mood, and affect are within normal limits. 16:57 ECG was reviewed by the Attending Physician. Vital Signs: 14:05 BP 141 / 99; Pulse 76; Resp 16; Temp 97.4(TE); Pulse Ox 99% on R/A; Weight 83.91 kg; ss Height 5 ft. 11 in. (180.34 cm); Pain 0/10; 14:59 BP 125 / 87; Pulse 72; Resp 15; Pulse Ox 99% ; jl7 16:00 BP 122 / 90; Pulse 73; Resp 15; Pulse Ox 97% ; jl7 17:00 BP 131 / 92; Pulse 73; Resp 15; Pulse Ox 99% ; jl7 14:05 Body Mass Index 25.80 (83.91 kg, 180.34 cm) ss MDM: 14:20 Patient medically screened. 16:01 Data reviewed: vital signs, nurses notes. Data interpreted: Pulse oximetry: on room air kb is 99 %. Interpretation: normal. Counseling: I had a detailed discussion with the patient and/or guardian regarding: the historical points, exam findings, and any diagnostic results supporting the discharge/admit diagnosis, lab results, radiology results, the need for outpatient follow up, a family practitioner, to return to the emergency department if symptoms worsen or persist or if there are any questions or concerns that arise at home. 17:15 Data reviewed: I have discussed the patient's presentation/case with the attending Emergency Department Physician; and as a result, I will discharge patient. 10/08 14:20 Order name: Basic Metabolic Panel; Complete Time: 15:12 10/08 14:20 Order name: CBC with Diff; Complete Time: 14:53 kb 10/08 14:20 Order name: LFT's; Complete Time: 15:12 kb 10/08 14:20 Order name: Magnesium; Complete Time: 15:12 kb 10/08 14:20 Order name: NT PRO-BNP; Complete Time: 15:12 kb 10/08 14:20 Order name: PT-INR; Complete Time: 14:53 kb 10/08 14:20 Order name: Troponin (emerg Dept Use Only); Complete Time: 15:12 kb 10/08 14:20 Order name: XRAY Chest (1 view); Complete Time: 15:16 kb 10/08 14:20 Order name: EKG; Complete Time: 14:21 kb 10/08 14:20 Order name: Cardiac monitoring; Complete Time: 14:58 kb 10/08 14:20 Order name: EKG - Nurse/Tech; Complete Time: 14:58 kb 10/08 16:23 Order name: Troponin (emerg Dept Use Only); Complete Time: 17:15 kb 10/08 16:23 Order name: EKG; Complete Time: 16:24 kb 10/08 14:20 Order name: IV Saline Lock; Complete Time: 14:32 kb 10/08 14:20 Order name: Labs collected and sent; Complete Time: 14:32 kb 10/08 14:20 Order name: O2 Per Protocol; Complete Time: 14:58 kb 10/08 14:20 Order name: O2 Sat Monitoring; Complete Time: 14:58 kb 10/08 16:23 Order name: EKG - Nurse/Tech; Complete Time: 16:38 kb EC:57 Rate is 70 beats/min. Rhythm is regular. QRS [place] is Normal. IN interval is normal at kb 142 msec. QRS interval is normal at 82 msec. QT interval is normal at 378 msec. Administered Medications: 16:35 Drug: Ketorolac 30 mg Route: IVP; Site: right forearm; jl7 17:00 Follow up: Response: No adverse reaction; Pain is decreased jl7 Disposition Summary: 10/08/20 17:16 Discharge Ordered Location: Home kb Condition: Stable kb Diagnosis - Chest pain, unspecified kb Followup: kb - With: Private Physician - When: 2 - 3 days - Reason: Recheck today's complaints, Continuance of care, Re-evaluation by your physician Followup: kb - With: Emergency Department - When: As needed - Reason: Worsening of condition Discharge Instructions: - Discharge Summary Sheet kb - Nonspecific Chest Pain, Adult, [id number] kb Forms: - Medication Reconciliation Form kb - Thank You Letter kb - Antibiotic Education kb - Prescription Opioid Use kb Signatures: Dispatcher [employer] EDMS Julissa Kohler, CHERYLC ROXANNE-Steffi Hidalgo RN RN ss Selina Masters RN RN jl7
[2020-10-10 21:01] VITALS: TEMP 97.4
[2020-10-10 21:05] VITALS: BP 131/92; O2SAT 99
== END 2020-10-08 17:26 | disposition home or self-care (01) ==
LOC: ER 13:35
DX: R07.9 Chest pain, unspecified (principal); R20.2 Paresthesia of skin; I10 Essential (primary) hypertension
CPT/HCPCS: 36415; 71045; 80048; 80076; 83735; 83880; 84484; 85025; 85610; 93005; 96374; 99285

== ENCOUNTER 2020-12-12 21:35 | Emergency (ER) | payer SELFPAY ==
--- NOTE | 2020-12-12 23:28 | ER ---
Nurse's Notes [facility] Name: Christopher Shearer Age: 45 yrs Sex: Male : 1975 Arrival Date: 12/12/2020 Time: 21:37 Bed 5 Private MD: Diagnosis: Pain in thoracic spine Presentation: 12/12 21:48 Chief complaint: Patient states: Pt states around 1500 today he slipped and fell on the couch. Pt c/o pain to mid/lower back. Pt states when his significant other applied bio freeze it caused more pain when rubbed on it. Pt states he has coughed a few times and the pain is worse. Pt states he has pain radiating down his left leg. No loss of bowel or bladder. Pt ambulatory with steady gait. Pt denies any other injury or complaint. Mechanism of Injury: Fall from standing position. 21:48 Acuity: PAVAN 3 21:48 Method Of Arrival: Ambulatory 21:58 Coronavirus screen: At this time, the client does not indicate any symptoms associated ea with coronavirus-19. Ebola Screen: No symptoms or risks identified at this time. Initial Sepsis Screen: Does the patient meet any 2 criteria? No. Patient's initial sepsis screen is negative. Does the patient have a suspected source of infection? No. Patient's initial sepsis screen is negative. Risk Assessment: Do you want to hurt yourself or someone else? Patient reports no desire to harm self or others. Onset of symptoms was December 12, 2020. 22:02 Care prior to arrival: None. Trauma event details: Injury occurred in the county [facility], Injury occurred: at home. 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 - Immunization history: Last tetanus immunization: unknown. - Social history:: Smoking status: Patient denies any tobacco usage or history of. Screenin:51 Abuse screen: Denies threats or abuse. Denies injuries from another. wg 22:00 Nutritional screening: No deficits noted. Tuberculosis screening: No symptoms or risk ea factors identified. Fall Risk Fall in past 12 months (25 points). Primary Survey: 21:51 NO uncontrolled hemorrhage observed. A: The patient is alert. Airway: patent. wg Breathing/Chest: Respiratory pattern: regular, Respiratory effort: spontaneous, unlabored. Circulation: Pulses: palpable right dorsalis pedis artery and left dorsalis pedis artery. Disability Alert. 22:00 Exposure/Environment: All clothing and personal items were removed. Forensic evidence ea collection is not deemed to be indicated at this time. Items placed in patient belonging bag. Reassessment Breathing/Chest Respiratory pattern Regular. Secondary Survey: 22:02 Musculoskeletal: Reports pain in thoracic area. ea Assessment: 21:48 General: Appears uncomfortable, well groomed, Behavior is cooperative, appropriate for wg age. Pain: Complains of pain in mid/lower back Pain currently is 7 out of 10 on a pain scale. Neuro: Reports pain with slight tingling down left leg. . 22:01 General: Appears uncomfortable, Behavior is cooperative, appropriate for age. Pain: ea Complains of pain in thoracic area. Neuro: Level of Consciousness is awake, alert, obeys commands. Respiratory: Airway is patent Respiratory effort is even, unlabored, Respiratory pattern is regular, symmetrical. Derm: Skin is pink, warm \T\ dry. 23:38 Reassessment: Patient and/or family updated on plan of care and expected duration. Pain ea level reassessed. Patient is alert, oriented x 3, equal unlabored respirations, skin warm/dry/pink. Discharge instruction given to patient verbalized the understanding of instruction. Pt left ED ambulatory tolerating well. Vital Signs: 21:51 BP 144 / 89; Pulse 86; Resp 18; Temp 98.4; Pulse Ox 100% on R/A; Weight 86.18 kg; wg Height 5 ft. 11 in. (180.34 cm); Pain 4/10; 23:38 BP 127 / 85; Pulse 80; Resp 18; Pulse Ox 99% ; ea 21:51 Body Mass Index 26.50 (86.18 kg, 180.34 cm) wg Eric Coma Score: 21:51 Eye Response: spontaneous(4). Verbal Response: oriented(5). Motor Response: obeys wg commands(6). Total: 15. Trauma Score (Adult): 21:51 Eye Response: spontaneous(1); Verbal Response: oriented(1); Motor Response: obeys wg commands(2); Systolic BP: > 89 mm Hg(4); Respiratory Rate: 10 to 29 per min(4); [place]bin[place] Score: 15; Trauma Score: 12 ED Course: 21:37 Patient arrived in ED. cf2 21:50 Triage completed. wg 21:51 Patient has correct armband on for positive identification. wg 21:55 Thania Dalal RN is Primary Nurse. ea 21:55 Red Whitfield PA is PHCP. jr8 21:55 Zander Crouch MD is Attending Physician. jr8 22:00 Arm band placed on right wrist. Patient placed in an exam room, on a stretcher, on ea pulse oximetry. 22:00 Patient maintains SpO2 saturation greater than 95% on room air. ea 22:00 Thermoregulation: warm blanket given to patient. ea 22:43 CT Thoracic Spine Wo Cont In Process Unspecified. EDMS 23:37 No provider procedures requiring assistance completed. Patient did not have IV access ea during this emergency room visit. Administered Medications: No medications were administered Intake: 23:38 PO: 0ml; Total: 0ml. ea Outcome: 23:27 Discharge ordered by . jr8 23:37 Discharged to home ambulatory. ea 23:37 Condition: stable 23:37 Discharge instructions given to patient, Instructed on discharge instructions, follow up and referral plans. Demonstrated understanding of instructions, follow-up care. 23:38 Patient's length of stay was not longer than 2 hours. ea 23:39 Patient left the ED. ea Signatures: Dispatcher [employer] EDMS Red Whitfield PA PA [facility] Thania Dalal RN RN ea Frazier, Celesta 2 Jeremiah Ambrose RN
--- NOTE | 2020-12-12 23:28 | EDPHYS ---
Physician Documentation [facility] Name: Christopher Shearer Age: 45 yrs Sex: Male : 1975 Arrival Date: 12/12/2020 Time: 21:37 Bed 5 Private MD: ED Physician Zander Crouch HPI: 12/12 22:00 This 45 yrs old Male presents to ER via Ambulatory with complaints of Fall jr8 Injury, MIDDLE BACK PAIN. 22:00 Onset: The symptoms/episode began/occurred acutely, today. Associated injuries: The jr8 patient sustained upper back injury, pain, pain with movement, tenderness. Severity of symptoms: At their worst the symptoms were moderate, in the emergency department the symptoms are unchanged. The patient has not experienced similar symptoms in the past. The patient has not recently seen a physician. This is a 45-year-old male patient that presented to the emergency room with mid thoracic back pain. Stated that he had tripped and fell backwards causing him to hit his mid spinal region on an armrest of a chair. Pain since then with point tenderness to the mid thoracic spine. Denies any numbness or tingling bowel bladder dysfunction or any other acute findings at this time. 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 - Immunization history: Last tetanus immunization: unknown. - Social history:: Smoking status: Patient denies any tobacco usage or history of. ROS: 22:00 Eyes: Negative for injury, pain, redness, and discharge, ENT: Negative for injury, jr8 pain, and discharge, Neck: Negative for injury, pain, and swelling, Cardiovascular: Negative for chest pain, palpitations, and edema, Respiratory: Negative for shortness of breath, cough, wheezing, and pleuritic chest pain, Abdomen/GI: Negative for abdominal pain, nausea, vomiting, diarrhea, and constipation, MS/Extremity: Negative for injury and deformity, Skin: Negative for injury, rash, and discoloration, Neuro: Negative for headache, weakness, numbness, tingling, and seizure. 22:00 Back: Positive for pain at rest, pain with movement, of the thoracic area, Negative for radiated pain. Exam: 22:00 Constitutional: This is a well developed, well nourished patient who is awake, alert, jr8 and in no acute distress. Chest/axilla: Normal chest wall appearance and motion. Nontender with no deformity. No lesions are appreciated. Cardiovascular: Regular rate and rhythm with a normal S1 and S2. No gallops, murmurs, or rubs. Normal PMI, no JVD. No pulse deficits. Respiratory: Lungs have equal breath sounds bilaterally, clear to auscultation and percussion. No rales, rhonchi or wheezes noted. No increased work of breathing, no retractions or nasal flaring. Abdomen/GI: Soft, non-tender, with normal bowel sounds. No distension or tympany. No guarding or rebound. No evidence of tenderness throughout. Skin: Warm, dry with normal turgor. Normal color with no rashes, no lesions, and no evidence of cellulitis. MS/ Extremity: Pulses equal, no cyanosis. Neurovascular intact. Full, normal range of motion. Neuro: Awake and alert, GCS 15, oriented to person, place, time, and situation. Cranial nerves II-XII grossly intact. Motor strength 5/5 in all extremities. Sensory grossly intact. 22:00 Back: pain, that is mild, ROM is painful, with flexion, normal spinal alignment noted, vertebral tenderness, is appreciated at T9, T10 and T11. Vital Signs: 21:51 BP 144 / 89; Pulse 86; Resp 18; Temp 98.4; Pulse Ox 100% on R/A; Weight 86.18 kg; wg Height 5 ft. 11 in. (180.34 cm); Pain 4/10; 23:38 BP 127 / 85; Pulse 80; Resp 18; Pulse Ox 99% ; ea 21:51 Body Mass Index 26.50 (86.18 kg, 180.34 cm) wg Eric Coma Score: 21:51 Eye Response: spontaneous(4). Verbal Response: oriented(5). Motor Response: obeys commands(6). Total: 15. Trauma Score (Adult): 21:51 Eye Response: spontaneous(1); Verbal Response: oriented(1); Motor Response: obeys commands(2); Systolic BP: > 89 mm Hg(4); Respiratory Rate: 10 to 29 per min(4); Thrall Score: 15; Trauma Score: 12 MDM: 21:55 Patient medically screened. jr8 23:26 Data reviewed: vital signs, nurses notes, radiologic studies, CT scan. Data jr8 interpreted: Pulse oximetry: on room air is 100 %. Interpretation: normal. Counseling: I had a detailed discussion with the patient and/or guardian regarding: the historical points, exam findings, and any diagnostic results supporting the discharge/admit diagnosis, radiology results, the need for outpatient follow up, a family practitioner, to return to the emergency department if symptoms worsen or persist or if there are any questions or concerns that arise at home. 12/12 22:00 Order name: CT Thoracic Spine Wo Cont jr8 Administered Medications: No medications were administered Disposition: 12/13 05:33 Co-signature as Attending Physician, Zander Crouch MD. 7 Disposition Summary: 12/12/20 23:27 Discharge Ordered Location: Home jr8 Problem: new jr8 Symptoms: have improved jr8 Condition: Stable jr8 Diagnosis - Pain in thoracic spine jr8 Followup: jr8 - With: Private Physician - When: 5 - 6 days - Reason: Recheck today's complaints, Continuance of care, Re-evaluation by your physician Discharge Instructions: - Discharge Summary Sheet jr8 - Acute Back Pain, Adult jr8 Forms: - Medication Reconciliation Form jr8 - Thank You Letter jr8 - Antibiotic Education jr8 - Prescription Opioid Use jr8 Signatures: Dispatcher [employer] EDRed Carranza PA PA jr8 Thania Dalal RN RN ea Holmes, Maurice, MD MD [facility] Jeremiah Ambrose, DAVID
[2020-12-12 23:43] VITALS: TEMP 98.4
[2020-12-12 23:44] VITALS: BP 127/85; O2SAT 99
--- NOTE | 2020-12-13 11:59 | RAD REPORT ---
EXAM DESCRIPTION: CT - Thoracic Spine W/o Cont - 12/13/2020 6:30 am CLINICAL HISTORY: 45 years Male PAIN COMPARISON: None. TECHNIQUE: Contiguous axial images obtained through the thoracic spine without IV contrast. Coronal and sagittal reformatted images obtained. This exam was performed according to our department optimization program which includes automated exp osure control, adjustment of the mA and/or kv according to patient size and/or use of iterative recon struction technique. FINDINGS: Vertebral body alignment unremarkable. No acute thoracic spine fractures are identified. IMPRESSION: No acute thoracic spinal fracture is identified. Electronically signed by: George Harvey MD 12/12/2020 11:02 PM CDT Due to temporary technical issues with the PACS/Fluency reporting system, reports are being signed by the in house radiologists without review as a courtesy to insure prompt reporting. The interpreting radiologist is fully responsible for the content of the report.
== END 2020-12-12 23:39 | disposition home or self-care (01) ==
LOC: ER 21:35
DX: M54.6 Pain in thoracic spine (principal)
CPT/HCPCS: 72128; 99284

== ENCOUNTER 2020-12-25 20:42 | Emergency (ER) | payer SELFPAY ==
[2020-12-25 21:41] LABS: Protime INR 0.98
[2020-12-25 21:49] LABS: Absolute Lymphocytes (CBC) 2.3 K/uL (0.7-4.9); Basophils % 0.5 % (0-1.3); Hematocrit 49.8 % (39.6-49.0); Lymphocytes % 33.4 % (15.3-44.8); MPV 8.4 fL (7.6-11.3); RBC Red Blood Cell Count 5.75 M/uL (4.33-5.43)
--- NOTE | 2020-12-25 21:52 | RAD REPORT ---
EXAM DESCRIPTION: [facility] Single View12/25/2020 9:34 pm CLINICAL HISTORY: cough COMPARISON: 09/2020 FINDINGS: A 5 millimeters nodular opacity in the right lung is unchanged from the prior exams. Left lung appears clear. The heart is normal size IMPRESSION: Stable 5 millimeter nodular opacity right lung. It is recommended that patient have a fo llowup chest x-ray in 6 months for re-evaluation
[2020-12-25] MEDS ORDERED: NA CHLORIDE 0.9% 1,000 ML ONE (21:56)
[2020-12-25 22:12] LABS: ALT/SGPT 121 U/L (12-78); AST/SGOT 75 U/L (15-37); Alkaline Phosphatase 105 U/L (45-117); BUN Blood Urea Nitrogen 14 mg/dL (7-18); Bicarbonate 27 mmol/L (21-32); Bilirubin Direct 0.2 mg/dL (0-0.2); Bilirubin Total 0.6 mg/dL (0.2-1.0); Glucose Level 109 mg/dL (74-106); Lipase 249 U/L (73-393); Magnesium 2.5 mg/dL (1.8-2.4); NT PRO-BNP 13 pg/mL (<125); Potassium 3.8 mmol/L (3.5-5.1); Protein, Total 8.7 g/dL (6.4-8.2); Sodium Level 140 mmol/L (136-145); Troponin (Emerg Dept Use Only) < 0.02 ng/mL (0.0-0.045)
[2020-12-25] MEDS ORDERED: AZITHROMYCIN 250 MG TAB ONE (22:39)
[2020-12-25] MEDS ORDERED: ASPIRIN EC 81 MG TAB PO ONE (22:39)
[2020-12-25] MEDS ORDERED: FAMOTIDINE 20 MG TAB ONE (22:40)
[2020-12-25 23:01] LABS: Ferritin 683.3 ng/mL (26-388)
[2020-12-25 23:17] LABS: C-Reactive Protein < 2.90 mg/L (<3.00)
--- NOTE | 2020-12-25 23:25 | ER ---
Nurse's Notes [facility] Name: Christopher Shearer Age: 45 yrs Sex: Male : 1975 Arrival Date: 12/25/2020 Time: 20:46 Bed 13 Private MD: Diagnosis: Coronavirus infection, unspecified;Pneumonia due to SARS-associated coronavirus;Chest pain on breathing;Solitary pulmonary nodule;Essential (primary) hypertension Presentation: 12/25 20:51 Chief complaint: Patient states: intermittent substernal cp that started today, pain sj1 worse with deep breathing. dx with covid 12/19/20. Denies NVD. Coronavirus screen: Vaccine status: Patient reports being unvaccinated. Client reports previous positive COVID test result. Date of collection: December 19, 2020. Ebola Screen: Patient negative for fever greater than or equal to 101.5 degrees Fahrenheit, and additional compatible Ebola Virus Disease symptoms Patient denies exposure to infectious person. Patient denies travel to an Ebola-affected area in the 21 days before illness onset. Initial Sepsis Screen: Does the patient meet any 2 criteria? No. Patient's initial sepsis screen is negative. Does the patient have a suspected source of infection? No. Patient's initial sepsis screen is negative. Risk Assessment: Do you want to hurt yourself or someone else? Patient reports no desire to harm self or others. Onset of symptoms was December 25, 2020. 20:51 Method Of Arrival: Ambulatory sj1 20:51 Acuity: PAVAN 3 sj1 Triage Assessment: 20:54 General: Appears in no apparent distress. Behavior is calm, cooperative, appropriate sj1 for age. Pain: Denies pain. Cardiovascular: Reports chest pain. 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 - Social history:: Smoking status: Patient reports the use of cigarette tobacco products, smokes one-half pack cigarettes per day, Patient/guardian denies using alcohol. - Family history:: not pertinent. Screenin:56 Abuse screen: Denies threats or abuse. Denies injuries from another. Nutritional sj1 screening: No deficits noted. Tuberculosis screening: No symptoms or risk factors identified. Fall Risk None identified. Assessment: 20:56 Pain: Pain does not radiate. Pain began today. sj1 21:20 General: Appears in no apparent distress. comfortable, well groomed, well developed, bs2 well nourished, Behavior is cooperative, appropriate for age, anxious. General: pt tested positive for covid 6 days ago, pt states he has been monitoring his O2 sat and he has been fine, but he was worried about falling asleep because of everything he has been told by others and read online. Pt states he was afraid his oxygen would drop to low in his sleep. Pt states the only time he gets a little winded is when he uses the stairs at his residence instead of the elevator. . Neuro: No deficits noted. Cardiovascular: No deficits noted. Respiratory: Reports shortness of breath on exertion cough that is non-productive, dry, pain with cough Airway is patent Trachea midline Respiratory effort is even, unlabored, relaxed, Respiratory pattern is regular, symmetrical, Breath sounds are clear bilaterally. Onset: The symptoms/episode began/occurred gradually, the patient has mild shortness of breath Denies labored breathing, pain with respiration, air hunger. GI: No deficits noted. No signs and/or symptoms were reported involving the gastrointestinal system. : No deficits noted. No signs and/or symptoms were reported regarding the genitourinary system. EENT: No deficits noted. No signs and/or symptoms were reported regarding the EENT system. Derm: No deficits noted. No signs and/or symptoms reported regarding the dermatologic system. Musculoskeletal: No deficits noted. No signs and/or symptoms reported regarding the musculoskeletal system. 12/26 01:00 General: Consent and all paperwork filled out for Regen, medication is at room temp, bs2 correct tubing and filter in place, informed pt this takes one hour and then line will be fully flushed with 0.9% NS, Pt informed to contact me if he starts to feel any possible allergic reaction .. 01:30 Reassessment: Patient appears in no apparent distress at this time. No changes from bs2 previously documented assessment. Patient and/or family updated on plan of care and expected duration. Pain level reassessed. Patient is alert, oriented x 3, equal unlabored respirations, skin warm/dry/pink. Patient denies pain at this time. 02:15 Reassessment: Patient appears in no apparent distress at this time. No changes from bs2 previously documented assessment. Patient and/or family updated on plan of care and expected duration. Pain level reassessed. Patient is alert, oriented x 3, equal unlabored respirations, skin warm/dry/pink. medication administration done, pt vitals stable, informed pt that we must monitor him for one more hour before discharging. Patient denies pain at this time. Vital Signs: 12/25 20:51 BP 142 / 90 RA Sitting (auto/reg); Pulse 79; Resp 18 S; Temp 98.8(O); Pulse Ox 98% on sj1 R/A; Weight 85.28 kg (R); Height 5 ft. 11 in. (180.34 cm) (R); Pain 0/10; 21:30 BP 138 / 89; Pulse 71; Resp 18; Pulse Ox 100% ; Pain 2/10; bs2 22:30 BP 161 / 93; Pulse 71; Resp 13; Pain 2/10; bs2 12/26 00:30 BP 149 / 89; Pulse 66; Resp 16; Temp 98; Pulse Ox 100% on R/A; Pain 10/10; bs2 01:00 BP 120 / 77; Pulse 61; Resp 15; Temp 98.6; Pulse Ox 100% ; Pain 0/10; bs2 01:30 BP 112 / 78; Pulse 61; Resp 15; Temp 98.4; Pulse Ox 100% on R/A; Pain 0/10; bs2 02:00 BP 115 / 70; Pulse 57; Resp 15; Temp 98.6; Pulse Ox 100% ; Pain 0/10; bs2 02:30 BP 105 / 62; Pulse 61; Resp 15; Temp 98.6; Pulse Ox 100% on R/A; Pain 0/10; bs2 03:00 BP 106 / 64 LA Sitting (auto/reg); Pulse 62 MON; Resp 17 S; Temp 98.6(O); Pulse Ox 100% bs2 on R/A; Pain 0/10; 12/25 20:51 Body Mass Index 26.22 (85.28 kg, 180.34 cm) sj1 ED Course: 12/25 20:46 Patient arrived in ED. ja2 20:54 Triage completed. sj1 20:54 Arm band placed on left wrist. sj1 20:56 Patient has correct armband on for positive identification. sj1 21:02 Wisam Rayo MD is Attending Physician. heather 21:05 Inserted saline lock: 20 gauge in right antecubital area, using aseptic technique. ds4 Blood collected. 21:22 Sally Jarrett, RN is Primary Nurse. bs2 21:33 XRAY Chest (1 view) In Process Unspecified. EDMS 21:37 SARS-COV-2 RT PCR Sent. sj1 21:37 Troponin (emerg Dept Use Only) Sent. bs2 21:37 PT-INR Sent. bs2 21:37 NT PRO-BNP Sent. bs2 21:37 Magnesium Sent. bs2 21:37 LFT's Sent. bs2 21:37 CBC with Diff Sent. bs2 21:37 Basic Metabolic Panel Sent. bs2 21:37 Lipase Sent. bs2 22:28 CT Chest For PE Angio In Process Unspecified. EDMS 23:24 Lobo Medina MD is Referral Physician. [facility] 23:29 US Extremity Venous W Compression Thomas In Process Unspecified. EDMS 23:30 CRP Sent. bs2 23:31 financial planning assistant on. Pulse ox on. NIBP on. Door closed. Lights dimmed. Warm blanket bs2 given. 23:31 No provider procedures requiring assistance completed. Patient maintains SpO2 bs2 saturation greater than 95% on room air. 23:32 COVID-19 : Document "Date of Symptom Onset" if Symptomatic. Sent. bs2 12/26 03:46 IV discontinued, intact, bleeding controlled, No redness/swelling at site. bs2 Administered Medications: 12/25 21:33 Drug: NS 0.9% 1000 ml Route: IV; Rate: 1 bolus; Site: right antecubital; bs2 12/26 01:02 Follow up: IV Status: Completed infusion bs2 12/25 22:18 Drug: Aspirin Chewable Tablet 324 mg Route: PO; bs2 23:32 Follow up: Response: No adverse reaction bs2 22:18 Drug: Zithromax (azithromycin) 500 mg Route: PO; bs2 23:32 Follow up: Response: No adverse reaction bs2 22:18 Drug: Pepcid (famotidine) 40 mg Route: PO; bs2 23:32 Follow up: Response: No adverse reaction bs2 23:23 CANCELLED (Duplicate Order): predniSONE 40 mg PO once [facility] 12/26 00:00 Drug: predniSONE 60 mg Route: PO; bs2 03:19 Follow up: Response: No adverse reaction bs2 00:20 Drug: Tylenol 1000 mg Route: PO; bs2 03:21 Follow up: Response: No adverse reaction bs2 00:20 Drug: Benadryl (diphenhydrAMINE) 12.5 mg Route: IVP; Site: right antecubital; bs2 03:21 Follow up: Response: No adverse reaction bs2 00:50 Drug: REGEN-COV Dose Pack 120 mg/mL-120 mg/mL (EUA) 1 vials Route: IV; Rate: per bs2 protocol; Site: right antecubital; 03:19 Follow up: IV Status: Completed infusion bs2 01:20 Drug: Montelukast 10 mg Route: PO; bs2 03:19 Follow up: Response: No adverse reaction bs2 Outcome: 12/25 23:24 Discharge ordered by MD. romero 12/26 03:45 Discharged to home ambulatory. bs2 Condition: stable Discharge instructions given to patient, Instructed on discharge instructions, follow up and referral plans. medication usage, Demonstrated understanding of instructions, follow-up care, medications, Prescriptions given X 4. 03:52 Patient left the ED. bs2 Signatures: Dispatcher [employer] Wisam Mccormack MD MD cha Swanson, Donovan ds4 Sally Jarrett, RN RN bs2 Tatianna Caal Sade, DAVID RN sj1
--- NOTE | 2020-12-25 23:25 | EDPHYS ---
Physician Documentation [facility] Name: Christopher Shearer Age: 45 yrs Sex: Male : 1975 Arrival Date: 12/25/2020 Time: 20:46 Bed 13 Private MD: ED Physician Wisam Rayo HPI: 12/25 22:15 This 45 yrs old Male presents to ER via Ambulatory with complaints of Chest heather Pain, Shortness Of Breath. 22:15 The patient or guardian reports chest pain that is located primarily in the anterior heather chest wall, right. Onset: 3 day(s) ago. Onset: acutely. The pain does not radiate. Associated signs and symptoms: Pertinent positives: shortness of breath. The chest pain is described as sharp. Duration: The patient or guardian reports multiple episodes, that wax and wane. Modifying factors: The symptoms are alleviated by remaining still, the symptoms are aggravated by breathing, cough. Severity of pain: At its worst the pain was moderate in the emergency department the pain is unchanged. The patient has not experienced similar symptoms in the past. 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 - Social history:: Smoking status: Patient reports the use of cigarette tobacco products, smokes one-half pack cigarettes per day, Patient/guardian denies using alcohol. - Family history:: not pertinent. ROS: 22:15 Constitutional: Negative for fever, chills, and weight loss, Eyes: Negative for injury, heather pain, redness, and discharge, ENT: Negative for injury, pain, and discharge, Neck: Negative for injury, pain, and swelling, Cardiovascular: Negative for chest pain, palpitations, and edema, Abdomen/GI: Negative for abdominal pain, nausea, vomiting, diarrhea, and constipation, Back: Negative for injury and pain, : Negative for injury, bleeding, discharge, and swelling, MS/Extremity: Negative for injury and deformity, Skin: Negative for injury, rash, and discoloration, Neuro: Negative for headache, weakness, numbness, tingling, and seizure, Psych: Negative for depression, anxiety, suicide ideation, homicidal ideation, and hallucinations, Allergy/Immunology: Negative for hives, rash, and allergies, Endocrine: Negative for neck swelling, polydipsia, polyuria, polyphagia, and marked weight changes, Hematologic/Lymphatic: Negative for swollen nodes, abnormal bleeding, and unusual bruising. 22:15 Respiratory: Positive for cough, "sounds productive". Exam: 22:15 Constitutional: This is a well developed, well nourished patient who is awake, alert, heather and in no acute distress. Head/Face: Normocephalic, atraumatic. Eyes: Pupils equal round and reactive to light, extra-ocular motions intact. Lids and lashes normal. Conjunctiva and sclera are non-icteric and not injected. Cornea within normal limits. Periorbital areas with no swelling, redness, or edema. ENT: Nares patent. No nasal discharge, no septal abnormalities noted. Tympanic membranes are normal and external auditory canals are clear. Oropharynx with no redness, swelling, or masses, exudates, or evidence of obstruction, uvula midline. Mucous membranes moist. Neck: Trachea midline, no thyromegaly or masses palpated, and no cervical lymphadenopathy. Supple, full range of motion without nuchal rigidity, or vertebral point tenderness. No Meningismus. Chest/axilla: Normal chest wall appearance and motion. Nontender with no deformity. No lesions are appreciated. Cardiovascular: Regular rate and rhythm with a normal S1 and S2. No gallops, murmurs, or rubs. Normal PMI, no JVD. No pulse deficits. Respiratory: Lungs have equal breath sounds bilaterally, clear to auscultation and percussion. No rales, rhonchi or wheezes noted. No increased work of breathing, no retractions or nasal flaring. Abdomen/GI: Soft, non-tender, with normal bowel sounds. No distension or tympany. No guarding or rebound. No evidence of tenderness throughout. Back: No spinal tenderness. No costovertebral tenderness. Full range of motion. Skin: Warm, dry with normal turgor. Normal color with no rashes, no lesions, and no evidence of cellulitis. MS/ Extremity: Pulses equal, no cyanosis. Neurovascular intact. Full, normal range of motion. Neuro: Awake and alert, GCS 15, oriented to person, place, time, and situation. Cranial nerves II-XII grossly intact. Motor strength 5/5 in all extremities. Sensory grossly intact. Cerebellar exam normal. Normal gait. Psych: Awake, alert, with orientation to person, place and time. Behavior, mood, and affect are within normal limits. 22:15 Musculoskeletal/extremity: DVT Exam: No signs of deep vein thrombosis. no pain, no swelling, no tenderness, negative Homans' sign noted on exam, no appreciated bluish discoloration, no erythema, no increased warmth. Vital Signs: 20:51 BP 142 / 90 RA Sitting (auto/reg); Pulse 79; Resp 18 S; Temp 98.8(O); Pulse Ox 98% on sj1 R/A; Weight 85.28 kg (R); Height 5 ft. 11 in. (180.34 cm) (R); Pain 0/10; 21:30 BP 138 / 89; Pulse 71; Resp 18; Pulse Ox 100% ; Pain 2/10; bs2 22:30 BP 161 / 93; Pulse 71; Resp 13; Pain 2/10; bs2 12/26 00:30 BP 149 / 89; Pulse 66; Resp 16; Temp 98; Pulse Ox 100% on R/A; Pain 10/10; bs2 01:00 BP 120 / 77; Pulse 61; Resp 15; Temp 98.6; Pulse Ox 100% ; Pain 0/10; bs2 01:30 BP 112 / 78; Pulse 61; Resp 15; Temp 98.4; Pulse Ox 100% on R/A; Pain 0/10; bs2 02:00 BP 115 / 70; Pulse 57; Resp 15; Temp 98.6; Pulse Ox 100% ; Pain 0/10; bs2 02:30 BP 105 / 62; Pulse 61; Resp 15; Temp 98.6; Pulse Ox 100% on R/A; Pain 0/10; bs2 03:00 BP 106 / 64 LA Sitting (auto/reg); Pulse 62 MON; Resp 17 S; Temp 98.6(O); Pulse Ox 100% bs2 on R/A; Pain 0/10; 12/25 20:51 Body Mass Index 26.22 (85.28 kg, 180.34 cm) [facility] MDM: 12/25 21:02 Patient medically screened. [facility] 22:18 Differential diagnosis: abnormal EKG, acute myocardial infarction, anxiety, heather Cholelithiasis costochondritis, esophagitis, pancreatitis, peptic ulcer disease, pleurisy, pneumonia, pneumothorax, pulmonary embolus, stable angina, unstable angina. HEART Score: History: Slightly Suspicious (0), ECG: Normal (0), Age: < or = 45 years (0), Risk Factors: No Risk Factors Known (0), Troponin: < or = 1 x Normal Limit (0), Total Score = 0. The patient was given aspirin in the Emergency Department. The patient's deep vein thrombosis risk score was calculated as follows: Total Score: 0. This patient was found to be at low risk for a deep vein thrombosis by using the Well's assessment criteria. The patient's pulmonary embolism risk score was calculated as follows: Total Score: 0-2 points. This patient was found to be at low risk for a pulmonary embolism by using the Well's assessment criteria. QUINN Risk Score: TOTAL SCORE = 0. Data reviewed: vital signs, nurses notes, lab test result(s), EKG, radiologic studies, CT scan, plain films. Data interpreted: roll out manager: rate is 79 beats/min, rhythm is regular, Pulse oximetry: on room air. Test interpretation: by ED physician or midlevel provider: ECG, plain radiologic studies. Counseling: I had a detailed discussion with the patient and/or guardian regarding: the historical points, exam findings, and any diagnostic results supporting the discharge/admit diagnosis, lab results, radiology results, the need for outpatient follow up, for definitive care, a family practitioner, a db2 developer. 12/25 21:18 Order name: Basic Metabolic Panel; Complete Time: 22:57 [facility] 12/25 21:18 Order name: CBC with Diff; Complete Time: 00:08 [facility] 12/25 21:18 Order name: LFT's; Complete Time: 22:57 [facility] 12/25 21:18 Order name: Magnesium; Complete Time: 22:57 [facility] 12/25 21:18 Order name: NT PRO-BNP; Complete Time: 22:57 [facility] 12/25 21:18 Order name: PT-INR; Complete Time: 22:57 [facility] 12/25 21:18 Order name: Troponin (emerg Dept Use Only); Complete Time: 22:57 [facility] 12/25 21:18 Order name: Lipase; Complete Time: 22:57 [facility] 12/25 21:18 Order name: UDS [facility] 12/25 21:18 Order name: COVID-19 : Document "Date of Symptom Onset" if Symptomatic. [facility] 12/25 21:18 Order name: D-Dimer; Complete Time: 22:57 [facility] 12/25 21:21 Order name: SARS-COV-2 RT PCR; Complete Time: 23:22 [facility] 12/25 21:50 Order name: Manual Differential; Complete Time: 00:08 [facility] 12/25 21:18 Order name: XRAY Chest (1 view); Complete Time: 22:57 [facility] 12/25 21:51 Order name: US Extremity Venous W Compression Thomas [facility] 12/25 21:51 Order name: CT Chest For PE Angio [facility] 12/25 22:11 Order name: CRP [facility] 12/25 22:11 Order name: Ferritin; Complete Time: 23:22 [facility] 12/25 22:11 Order name: C-Reactive Protein; Complete Time: 23:22 [facility] 12/25 23:56 Order name: Urine Dipstick-Ancillary; Complete Time: 00:08 [facility] 12/25 21:18 Order name: EKG; Complete Time: 21:19 [facility] 12/25 21:18 Order name: Cardiac monitoring; Complete Time: 21:37 [facility] 12/25 21:18 Order name: EKG - Nurse/Tech; Complete Time: 21:37 [facility] 12/25 21:18 Order name: IV Saline Lock; Complete Time: 21:37 [facility] 12/25 21:18 Order name: Labs collected and sent; Complete Time: 21:37 [facility] 12/25 21:18 Order name: O2 Per Protocol; Complete Time: 21:37 [facility] 12/25 21:18 Order name: O2 Sat Monitoring; Complete Time: 21:37 [facility] Administered Medications: 21:33 Drug: NS 0.9% 1000 ml Route: IV; Rate: 1 bolus; Site: right antecubital; 2 12/26 01:02 Follow up: IV Status: Completed infusion 2 12/25 22:18 Drug: Aspirin Chewable Tablet 324 mg Route: PO; bs2 23:32 Follow up: Response: No adverse reaction bs2 22:18 Drug: Zithromax (azithromycin) 500 mg Route: PO; bs2 23:32 Follow up: Response: No adverse reaction bs2 22:18 Drug: Pepcid (famotidine) 40 mg Route: PO; bs2 23:32 Follow up: Response: No adverse reaction bs2 23:23 CANCELLED (Duplicate Order): predniSONE 40 mg PO once heather 12/26 00:00 Drug: predniSONE 60 mg Route: PO; bs2 03:19 Follow up: Response: No adverse reaction bs2 00:20 Drug: Tylenol 1000 mg Route: PO; bs2 03:21 Follow up: Response: No adverse reaction bs2 00:20 Drug: Benadryl (diphenhydrAMINE) 12.5 mg Route: IVP; Site: right antecubital; bs2 03:21 Follow up: Response: No adverse reaction bs2 00:50 Drug: REGEN-COV Dose Pack 120 mg/mL-120 mg/mL (EUA) 1 vials Route: IV; Rate: per bs2 protocol; Site: right antecubital; 03:19 Follow up: IV Status: Completed infusion bs2 01:20 Drug: Montelukast 10 mg Route: PO; bs2 03:19 Follow up: Response: No adverse reaction bs2 Disposition Summary: 12/25/20 23:24 Discharge Ordered Location: Home heather Problem: new heather Symptoms: have improved heather Condition: Stable heather Diagnosis - Coronavirus infection, unspecified heather - Pneumonia due to SARS-associated coronavirus heather - Chest pain on breathing heather - Solitary pulmonary nodule heather - Essential (primary) hypertension heather Followup: heather - With: Private Physician - When: 2 - 3 days - Reason: Recheck today's complaints, Continuance of care, Re-evaluation by your physician Followup: heather - With: - When: 2 - 3 days - Reason: Recheck today's complaints, Re-evaluation by your physician Discharge Instructions: - Discharge Summary Sheet heather - Nonspecific Chest Pain, Adult heather - Chest Wall Pain heather - Aspirin and Your Heart heather - Pulmonary Nodule heather - Pulmonary Nodule, [id number] heather - COVID-19 heather - COVID-19 Frequently Asked Questions [facility] - 10 Things You Can Do to Manage Your COVID-19 Symptoms at Home - [facility] heather - COVID-19: Quarantine vs. Isolation - [facility] heather Forms: - Medication Reconciliation Form heather - Thank You Letter heather - Antibiotic Education heather - Prescription Opioid Use heather Prescriptions: - albuterol sulfate 90 mcg/actuation Inhalation HFA aerosol inhaler - inhale 2 puff by INHALATION route every 4-6 hours; 1 Pump; Refills: 0, Product heather Selection Permitted - ivermectin 3 mg Oral tablet - take 5 tablet by ORAL route once daily take 15 mg po daily on days 1 and 3.; 10 heather tablet; Refills: 0, Product Selection Permitted - Pepcid 20 mg Oral Tablet - take 1 tablet by ORAL route every 12 hours for 30 days; 60 tablet; Refills: 0, [facility] Product Selection Permitted - Singulair 10 mg Oral Tablet - take 1 tablet by ORAL route At bedtime; 20 tablet; Refills: 0, Product heather Selection Permitted - Zithromax 500 mg Oral Tablet - take 1 tablet by ORAL route once daily for 5 days; 5 tablet; Refills: 0, [facility] Product Selection Permitted - Prednisone 20 mg Oral Tablet - take 2 tablets by ORAL route once daily for 5 days; 10 tablet; Refills: 0, [facility] Product Selection Permitted Signatures: Dispatcher [employer] EDMS Wisam Rayo MD MD cha Smith, Bridget RN RN bs2 Marie Hill RN RN sj1 Corrections: (The following items were deleted from the chart) 12/25 21:21 21:21 CORONAVIRUS ordered. EDMA EDMS 23:23 23:23 predniSONE 40 mg PO once ordered. heather romero
[2020-12-25 23:31] LABS: Blood Morphology Comment NOT SEEN (NOT SEEN); Platelet Estimate ADEQ
[2020-12-25 23:56] LABS: Urine Blood Negative (Negative); Urine Glucose Negative (Negative); Urine Protein Trace (Negative)
[2020-12-26 00:23] LABS: Barbiturates NEGATIVE (NEGATIVE); Benzodiazepines NEGATIVE (NEGATIVE); Cocaine NEGATIVE (NEGATIVE); METHAMPHETAM NEGATIVE (NEGATIVE); Methadone NEGATIVE (NEGATIVE); Opiates NEGATIVE (NEGATIVE); Phencyclidine NEGATIVE (NEGATIVE); THC Cannibis NEGATIVE (NEGATIVE)
[2020-12-26] MEDS ORDERED: predniSONE 20 MG TAB ONE (00:38)
[2020-12-26] MEDS ORDERED: NA CHLORIDE 0.9% 250 ML ONE (00:39)
[2020-12-26] MEDS ORDERED: CASIRIVIMAB/IMDEVIMAB 10 ML VIAL ONE (00:39)
[2020-12-26] MEDS ORDERED: NA CHLORIDE 0.9% 50 ML ONE (00:40)
[2020-12-26] MEDS ORDERED: DIPHENHYDRAMINE 50 MG/ML VIAL ONE (00:43)
[2020-12-26] MEDS ORDERED: ACETAMINOPHEN 500 MG TAB ONE (00:43)
[2020-12-26] MEDS ORDERED: MONTELUKAST 10 MG TAB ONE (01:11)
[2020-12-26 04:09] VITALS: O2SAT 100
[2020-12-26 04:16] VITALS: TEMP 98.6
[2020-12-26 04:19] VITALS: BP 106/64
--- NOTE | 2020-12-26 08:41 | RAD REPORT ---
EXAM DESCRIPTION: US - Extrem Venous W Compress Thomas - 12/25/2020 11:29 pm CLINICAL HISTORY: PAIN Bilateral leg edema and swelling. COMPARISON: No comparisons TECHNIQUE: Real-time sonographic interrogation of the left and right lower extremity deep venous sys tems was performed. FINDINGS: Normal compressibility, flow augmentation, phasic flow and spontaneous flow is identified in both the left and right lower extremity deep venous systems. IMPRESSION: No sonographic evidence of left or right lower extremity deep venous thrombosis.
--- NOTE | 2020-12-26 10:47 | RAD REPORT ---
EXAM DESCRIPTION: Chest For Pe Angio 12/25/2020 11:09 PM CDT CLINICAL HISTORY: 45 years, Male, Chest pain;Dyspnea COMPARISON: None TECHNIQUE: Multiple transaxial tomograms of the chest were obtained from the lung apices through the lung bases utilizing 2 mm slice thickness at 2 mm interval reconstruction after the administration o f large bolus of IV contrast for complete opacification of the pulmonary arteries. Subsequent maximum intensity projection images were generated in the coronal and sagittal plane for r eview. This exam was performed according to our departmental dose-optimization protocol, which includes auto mated exposure control, adjustment of the mA and/or kV according to patient size and/or use of iterat melinda reconstruction technique. FINDINGS: The lungs parenchyma demonstrate the presence of minimal bilateral upper and lower lobe pe ripheral groundglass opacities. No significant masses, nodules and/or consolidations are identified. The trachea mainstem bronchus demonstrate to be normal. There is no significant pericardial or pleura l effusions. The thoracic aorta demonstrate to be unremarkable. The heart is normal in size. No evidence for right ventricular strain. There are no coronary artery calcifications. There is no significant mediastinal and/or hilar lymphadenopathy. The axillary regions demonstrate to be clear. Pulmonary arteries demonstrate to be normal, no intraluminal defect are seen that would suggest pulmo nary embolus. The bone windows demonstrate no significant skeletal lesions. The visualized portions of the upper abdomen demonstrate to be unremarkable. IMPRESSION: No evidence for pulmonary embolism. Commonly reported imaging features of COVID-19 pneumonia are present. Other processes such as influen za pneumonia and organizing pneumonia, as can be seen with drug toxicity and connective tissue diseas e, can cause a similar imaging pattern. (Reference: https://pubs.rsna.org/doi/full/10.1148/ryct.21423 92295). Electronically signed by: Matt Ruiz MD 12/25/2020 11:15 PM CDT Due to temporary technical issues with the PACS/Fluency reporting system, reports are being signed by the in house radiologist without review as a courtesy to ensure prompt reporting. The interpreting r adiologist is fully responsible for the content of the report.
--- NOTE | 2020-12-26 10:58 | EKG ---
Test Date: 2020-12-25 Test Time: 21:02:03 Bank Messenger: NII MEASUREMENT RESULTS: Intervals: Rate: 71 IL: 134 QRSD: 84 QT: 370 QTc: 402 Vidalia: P: 57 IL: 134 QRS: 20 T: 28 INTERPRETIVE STATEMENTS: Normal sinus rhythm Normal ECG Compared to ECG 10/08/2020 16:36:30 No significant changes Electronically Signed On 12-26-20 10:56:52 CDT by Juventino Parks
== END 2020-12-26 03:52 | disposition home or self-care (01) ==
LOC: ER 20:42
DX: U07.1 COVID-19 (principal); J12.82 Pneumonia due to coronavirus disease 2019; R91.1 Solitary pulmonary nodule; I10 Essential (primary) hypertension; F41.9 Anxiety disorder, unspecified; F17.210 Nicotine dependence, cigarettes, uncomplicated
CPT/HCPCS: 36415; 71045; 71275; 80048; 80076; 80307; 81003; 82728; 83690; 83735; 83880; 84484; 85025; 85379; 85610; 86140; 93005; 93970; J1200; J7030; J7050; J7512; Q9967; U0003

== ENCOUNTER → 2023-06-03 | Emergency (ER) | payer BC ==
[~2023-06-03] MED LIST: DIPHENHYDRAMINE 50 MG/ML VIAL ONE; KETOROLAC 30 MG/ML INJ ONE; METOCLOPRAMIDE 10 MG/2mL INJ ONE; NA CHLORIDE 0.9% 1,000 ML ONE
--- OUTSIDE RECORDS SUMMARY | 2023-06-03 09:22 | XMS REPORT | Continuity of Care Document ---
Author Name Unknown Address [address] [place] [address] [facility] thconnect Address [address] [place] [address] Care Team Providers Care Brazing Machine Tender Name Role Phone ROSS LAY Primary Care Physician UnaMARY Marinelli Attending Clinician Unavailab Mary Fraga DO Attending Clinician [phone] Problems Condition Name Condition Details Condition Category Status Onset Date Resolution Date Last Treatment Date Treating Clinician Comments Source No known active problems No known active problems Disease [facility] Allergies, Adverse Reactions, Alerts Allergy Name Allergy Type Status Severity Reaction(s) Onset Date Inactive Date Treating Clinician Comments Source NO KNOWN ALLERGIE S Drug Class Active [facility] Social History Social Habit Start Date Stop Date Quantity Comments Source Exposure to SARS-CoV-2 (event) Not sure [facility] Sex Assigned At 1975 00:00:00 1975 00:00:00 [facility] Smoking Status Start Date Stop Date Source Unknown if ever smoked [facility] Medications Ordered Medication Name Filled Medication Name Start Date Stop Date Current Medication? Ordering Clinician Indication Dosage Frequency Signature (SIG) Comments Components Source albuterol 90 mcg/actuati on inhaler 2020-03 0-08 00:00: 00 Yes [id number] 2{puff} Inhale 2 Puffs every 4 (four) hours as needed for Wheezing or Shortness of Breath. [facility] Vital Signs Vital Name Observation Time Observation Value Coty betancourt Systolic blood pressure 2020-12-22 04:42:00 155 mm[Hg] [facility] Diastolic blood pressure 2020-12-22 04:42:00 106 mm[Hg] [facility] Heart rate 2020-12-22 04:42:00 81 /min [facility] Body temperature 2020-12-22 04:42:00 37.5 Joan [facility] Respiratory rate 2020-12-22 04:42:00 18 /min [facility] Body height 2020-12-22 04:42:00 180.3 cm [facility] Body weight 2020-12-22 04:42:00 87.091 kg [facility] BMI 2020-12-22 04:42:00 26.78 kg/m2 [facility] Oxygen saturation in Arterial blood by Pulse oximetry 2020-12-22 04:42:00 99 /min [facility] Procedures Procedure Date / Time Performed Performing Clinicia n Source COVID-19 (ID NOW RAPID TESTING) 2020-12-22 04:46:00 Mary Card [facility] CONSENT/REFUSAL FOR DIAGNOSIS AND TREATMENT 2020-12-22 04:35:30 Doctor Unassigned, [place] [facility] Encounters Start Date/Time End Date/Time Encounter Type Admission Type Attending Clinicians Care Facility Care Department Encounter ID Source 2020-12-21 23:45:00 2020-12-22 00:57:00 Emergency X MARY CARD [facility] ERT [id number] [facility] 2020-12-21 23:45:00 2020-12-22 00:57:00 Emergency Mary Card [facility] [id number] [facility]
[2023-06-03 10:11] LABS: Absolute Basophils 0.1 K/uL (0-0.5); Absolute Eosinophils 0.1 K/uL (0-0.5); Absolute Lymphocytes (CBC) 1.5 K/uL (0.7-4.9); Absolute Neutrophil 10.7 K/uL (1.8-8.0); Basophils % 0.5 % (0-1.3); Eosinophils % 0.5 % (0-4.4); Hematocrit 49.1 % (39.6-49.0); Hemoglobin 16.8 g/dL (13.6-17.9); Lymphocytes % 11.4 % (15.3-44.8); MCH 29.4 pg (27.0-35.0); MCHC 34.2 g/dL (32.0-36.0); MPV 7.8 fL (7.6-11.3); Monocytes % 7.6 % (3.3-12.3); Nucleated RBC Absolute Count 0.1 (0-0); Nucleated Red Blood Cells % 0.4 % (0-0); Platelets 344 thou/uL (152-406); RBC Red Blood Cell Count 5.71 M/uL (4.33-5.43); Red Cell Distribution Width 13.6 % (12.1-15.2)
[2023-06-03 10:32] LABS: SARS-CoV-2 Antigen CONTROL BLUE LINE VIS/BG OK; SARS-CoV-2 Antigen Rapid Res Negative (Negative)
[2023-06-03 10:33] LABS: Albumin 3.9 g/dL (3.4-5.0); Albumin/Globulin Ratio 0.9 (1.1-1.8); Anion Gap 7.8 mEq/L (5.0-15.0); Bilirubin Total 0.8 mg/dL (0.2-1.0); Globulin 4.3 g/dL (2.3-3.5); Potassium 3.8 mEq/L (3.5-5.1); Protein, Total 8.2 g/dL (6.4-8.2)
--- NOTE | 2023-06-03 11:08 | RAD REPORT ---
[facility]07 [facility] CLINICAL HISTORY: COUGH COMPARISON: Chest Single View dated 12/25/2020; Chest Single View dated 10/08/2020; Chest Single View dated 05/28/2020; Chest Pa And Lat (2 Views) dated 02/25/2016 TECHNIQUE: Portable AP view of the chest. FINDINGS: The lungs are clear. No pneumothorax or effusion. The cardiomediastinal contours are unre markable. IMPRESSION: No acute cardiopulmonary process.
--- NOTE | 2023-06-03 11:48 | EDPHYS ---
Physician Documentation [facility] Name: Christopher Shearer Age: 47 yrs Sex: Male : 1975 Arrival Date: 06/03/2023 Time: 09:19 Bed DX4 Private MD: ED Physician Pepe Carmona HPI: 06/02 09:35 This 47 yrs old Male presents to ER via Ambulatory with complaints of Vomiting.ec2 09:35 Patient arrives today for evaluation of nausea and vomiting. Patient reports that he ec2 has been experiencing nausea and vomiting for the past day. Patient reports that he was recently diagnosed with bronchitis, started on azithromycin as well as steroids. Has been having cough and cold symptoms ongoing for a week. Patient reports some general abdominal discomfort. Patient reports no urinary complaints. Patient denies any fevers or chills. Reports that he is concerned he is dehydrated.. 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 - Social history:: Smoking status: Reported history of juuling and/or vaping. ROS: 09:35 Constitutional: as per hpi ec2 Exam: 09:35 Constitutional: GEN: NAD Head: atraumatic Eyes: EOMI Ears: External ears are ec2 normal. CV: regular rate LUNGS: no respiratory distress ABD: non-distended, soft, nontender, no guarding, not rigid SKIN: no evidence of rashes MSK: no evidence of trauma NEURO: moves all extremities equally Vital Signs: 09:33 BP 128 / 100; Pulse 74; Resp 18; Temp 98.4; Pulse Ox 100% ; Weight 89.36 kg; Height 5 jj7 ft. 10 in. ; Pain 2/10; 12:07 BP 120 / 78; Pulse 61; Resp 17; Pulse Ox 100% ; Pain 0/10; ll1 09:33 Body Mass Index 28.27 (89.36 kg, 177.8 cm) jj7 09:33 Pain Scale: Adult jj7 12:07 Pain Scale: Adult ll1 MDM: 09:34 Patient medically screened. ec2 09:35 Data reviewed: vital signs. ED course: Patient arrives today for evaluation of URI ec2 signs and symptoms along with nausea and vomiting. Examination remarkable for well-appearing nontoxic but was otherwise in no acute distress with a reassuring abdominal examination. Will obtain lab work to evaluate for electrolyte disturbances, anemia, renal dysfunction, will obtain viral swab to evaluate for viral infection as well. Will give the patient crystalloid as well as antiemetics to help with his symptoms. . 10:43 ED course: CBC with slight leukocytosis noted. Patient is on steroids of note. ec2 Metabolic profile with appropriate electrolytes, no significant renal dysfunction, slight diminished GFR. Flu and COVID testing negative. . 11:14 ED course: Chest x-ray shows no acute intrathoracic process. On reassessment patient ec2 remains well-appearing in no acute distress. Will have the patient finish his crystalloid infusion and discharge patient home with diagnosis of URI. . 11:47 ED course: on reassessment, pt w/ improvement in symptoms. suspect viral infection ec2 causing the pt's symptoms. will d/c to home, return precautions given. . 06/02 09:35 Order name: CBC with Diff; Complete Time: 10:43 ec2 06/02 09:35 Order name: CMP; Complete Time: 10:43 ec2 06/02 09:35 Order name: Influenza Screen (a \T\ B); Complete Time: 10:43 ec2 06/02 09:35 Order name: SARS RAPID; Complete Time: 10:43 ec2 06/02 09:35 Order name: CXR XRAY; Complete Time: 11:14 ec2 06/02 09:35 Order name: IV Saline Lock; Complete Time: 10:59 ec2 Administered Medications: 10:58 Drug: NS 0.9% IV 1000 ml IV at 1 bolus Per protocol; 1000 mL bolus Route: IV; Rate: 1 ll1 bolus; Site: right forearm; 11:57 Follow up: Response: No adverse reaction; IV Status: Completed infusion; IV Intake: ll1 1000ml 10:59 Drug: metoCLOPramide IVP 10 mg IVP once; over 1 to 2 minutes Route: IVP; Site: right ll1 forearm; 11:57 Follow up: Response: No adverse reaction; Nausea is decreased; RASS: Alert and Calm (0) ll1 10:59 Drug: diphenhydrAMINE IVP 25 mg IVP once Route: IVP; Site: right forearm; ll1 11:57 Follow up: Response: No adverse reaction; Pain is decreased; RASS: Alert and Calm (0) ll1 10:59 Drug: Ketorolac IVP 15 mg IVP once Route: IVP; Site: right forearm; ll1 11:58 Follow up: Response: No adverse reaction; Pain is decreased; RASS: Alert and Calm (0) ll1 Disposition Summary: 06/03/23 11:47 Discharge Ordered Notes: Location: Home ec2 Problem: new ec2 Symptoms: have improved ec2 Condition: Stable ec2 Diagnosis - Viral infection, unspecified ec2 Followup: ec2 - With: Private Physician - When: - Reason: Re-evaluation by your physician Discharge Instructions: - Discharge Summary Sheet ec2 - Viral Illness, Adult ec2 Forms: - Work release form ec2 - Medication Reconciliation Form ec2 - Thank You Letter ec2 - Antibiotic Education ec2 - Prescription Opioid Use ec2 - Patient Portal Instructions ec2 - Leadership Thank You Letter ec2 Prescriptions: - Compazine 10 mg Oral Tablet - take 1 tablet ORAL route every 8 hours As needed; 20 tablet; Refills: 0, ec2 Product Selection Permitted Signatures: Dispatcher [employer] Merlyn Ridley RN RN ll1 Sandra Hill RN RN jj7 Pepe Carmona MD MD ec2
--- NOTE | 2023-06-03 11:48 | ER ---
Nurse's Notes [facility] Name: Christopher Shearer Age: 47 yrs Sex: Male : 1975 Arrival Date: 06/03/2023 Time: : Bed DX4 Private MD: Diagnosis: Viral infection, unspecified Presentation: 06/02 09:33 Chief complaint: Patient states: Cough, congestion since Friday last week. Diagnosed jj7 with bronchitis yesterday, started on cough medicine, azithromycin, and methyl prednisone. N/V started today. Coronavirus screen: Client denies travel out of the [place] in the last 14 days. At this time, the client does not indicate any symptoms associated with coronavirus-19. Ebola Screen: Patient denies travel to an Ebola-affected area in the 21 days before illness onset. Initial Sepsis Screen: Does the patient meet any 2 criteria? No. Patient's initial sepsis screen is negative. Does the patient have a suspected source of infection? No. Patient's initial sepsis screen is negative. Risk Assessment: Do you want to hurt yourself or someone else? Patient reports no desire to harm self or others. Onset of symptoms was May 28, 2023. 09:33 Method Of Arrival: Ambulatory [facility] 09:33 Acuity: PAVAN 3 jj7 Triage Assessment: 09:35 General: Appears uncomfortable, Behavior is calm, cooperative, appropriate for age. jj7 Pain: Complains of pain in R trunk Pain currently is 2 out of 10 on a pain scale. Quality of pain is described as tender. EENT: Reports nasal congestion pain when swallowing. Respiratory: Reports cough that is. GI: Reports nausea, vomiting. 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 - Social history:: Smoking status: Reported history of juuling and/or vaping. Screenin:09 [facility] ED Fall Risk Assessment (Adult) History of falling in the last 3 months, ll1 including since admission No falls in past 3 months (0 pts) Confusion or Disorientation No (0 pts) Intoxicated or Sedated No (0 pts) Impaired Gait No (0 pts) Mobility Assist Device Used No (0 pt) Altered Elimination No (0 pt) Score/Fall Risk Level 0 - 2 = Low Risk Maintained a safe environment, Hourly rounding (assess needs \T\ fall precautionary measures) done. Abuse screen: Denies threats or abuse. Nutritional screening: No deficits noted. Tuberculosis screening: No symptoms or risk factors identified. Assessment: 10:53 Reassessment: No changes from previously documented assessment. Patient and/or family ll1 updated on plan of care and expected duration. Pain level reassessed. Patient is alert, oriented x 3, equal unlabored respirations, skin warm/dry/pink. 11:44 Reassessment: Patient and/or family updated on plan of care and expected duration. Pain ll1 level reassessed. 12:05 Reassessment: No changes from previously documented assessment. Patient and/or family ll1 updated on plan of care and expected duration. Pain level reassessed. Patient states feeling better. 12:09 GI: Abdomen is flat. ll1 Vital Signs: 09:33 BP 128 / 100; Pulse 74; Resp 18; Temp 98.4; Pulse Ox 100% ; Weight 89.36 kg; Height 5 jj7 ft. 10 in. ; Pain 2/10; 12:07 BP 120 / 78; Pulse 61; Resp 17; Pulse Ox 100% ; Pain 0/10; ll1 09:33 Body Mass Index 28.27 (89.36 kg, 177.8 cm) jj7 09:33 Pain Scale: Adult jj7 12:07 Pain Scale: Adult ll1 ED Course: 09:21 Patient arrived in ED. ec2 09:29 Pepe Carmona MD is Attending Physician. ec2 09:32 Arm band placed on. jj7 09:35 Triage completed. jj7 09:58 Initial lab(s) drawn, by me, sent to lab. COVID swab sent to lab. Flu and/or RSV swab ty sent to lab. Inserted saline lock: 20 gauge in right forearm, using aseptic technique. Blood collected. 10:09 CXR XRAY In Process Unspecified. EDMS 12:09 Patient has correct armband on for positive identification. Provided Education on: No ll1 drinking or driving on compazine. 12:09 No provider procedures requiring assistance completed. IV discontinued, intact, ll1 bleeding controlled, No redness/swelling at site. Pressure dressing applied. Administered Medications: 10:58 Drug: NS 0.9% IV 1000 ml IV at 1 bolus Per protocol; 1000 mL bolus Route: IV; Rate: 1 ll1 bolus; Site: right forearm; 11:57 Follow up: Response: No adverse reaction; IV Status: Completed infusion; IV Intake: ll1 1000ml 10:59 Drug: metoCLOPramide IVP 10 mg IVP once; over 1 to 2 minutes Route: IVP; Site: right ll1 forearm; 11:57 Follow up: Response: No adverse reaction; Nausea is decreased; RASS: Alert and Calm (0) ll1 10:59 Drug: diphenhydrAMINE IVP 25 mg IVP once Route: IVP; Site: right forearm; ll1 11:57 Follow up: Response: No adverse reaction; Pain is decreased; RASS: Alert and Calm (0) ll1 10:59 Drug: Ketorolac IVP 15 mg IVP once Route: IVP; Site: right forearm; ll1 11:58 Follow up: Response: No adverse reaction; Pain is decreased; RASS: Alert and Calm (0) ll1 Medication: 12:09 VIS not applicable for this client. ll1 Intake: 11:57 IV: 1000ml; Total: 1000ml. ll1 Outcome: 11:47 Discharge ordered by . ec2 12:09 Patient left the ED. ll1 12:09 Discharged to home ambulatory, ll1 12:09 Condition: stable 12:09 Discharge instructions given to patient, Instructed on discharge instructions, follow up and referral plans. no drinking with medication, no driving heavy equipment, medication usage, Demonstrated understanding of instructions, follow-up care, medications, Signatures: Dispatcher [employer] Merlyn Ridley RN RN ll1 Sandra Hill RN RN jj7 Pepe Carmona MD MD ec2 Jourdan Mcginnis
[2023-06-03 12:36] VITALS: BP 128/100; TEMP 98.4; O2SAT 100
== END ==
LOC: ER 09:19
DX: B34.9 Viral infection, unspecified (principal); Z11.52 Encounter for screening for COVID-19
CPT/HCPCS: 85025; 36415; 80053; 87804 ×2; 71045; 87811; J2765; J1200; J7030